=== PATIENT | male | born 1945 | race Caucasian/White ===

== ENCOUNTER → 2016-05-27 | Outpatient (CLI) | payer OTHER ==
[2016-05-27 09:49] LABS: Urine RBC None Seen /hpf (0 - 3)
[2016-05-27 10:34] LABS: Urine Bilirubin Negative (Negative); Urine Blood Negative /uL (Negative); Urine Color Yellow (Yellow); Urine Glucose Normal (Normal); Urine Ketone Negative (Negative); Urine Mucus FEW (None Seen); Urine Nitrite Negative (Negative); Urine Squamous Epithelial Cell FEW /hpf (<5); Urine Urobilinogen Normal (Negative); Urine pH 6.5 (5.0-8.0)
[2016-05-27 10:46] LABS: Albumin 3.7 g/dL (3.4-5.0); BUN/Creatinine Ratio 13.1; Bilirubin, Total 0.4 mg/dL (0.2-1.0); Calcium 9.1 mg/dL (8.5-10.1); Potassium 4.7 mmol/L (3.5-5.1)
[2016-05-27 11:02] LABS: Basophils # (auto) 0 uL; Basophils % (auto) 0.5 % (0.0-2.0); DEFINITIVE VIEW TRANSMISSION; Eosinophils # (auto) 0.1 uL; Eosinophils % (auto) 1.3 % (0.0-7.0); Hematocrit 44.1 % (41.0-53.0); Hemoglobin 15.1 g/dL (13.5-17.5); Lymphocytes # (auto) 2.2 uL; Lymphocytes % (auto) 32.5 % (10.0-50.0); Mean Corpuscular Hemoglobin 35.1 pg (28.0-32.0); Mean Corpuscular Hgb Conc. 34.3 g/dL (32.0-36.0); Mean Corpuscular Volume 102.1 fL (80.0-100.0); Mean Platelet Volume 7.6 fL (7.4-10.4); Monocytes # (auto) 0.4 uL; Monocytes % (auto) 5.6 % (0.0-12.0); Neutrophils % (auto) 60.1 % (37.0-80.0); Platelet Count (auto) 380 10^3/uL (140-450); Red Cell Distribution Width 12.5 % (11.6-16.0); White Blood Cell 6.6 10^3/uL (4.4-10.8)
== END | disposition home or self-care (01) ==
LOC: LAB 09:04
PROVIDERS: ATTEND Internal Medicine
DX: J02.9 Acute pharyngitis, unspecified (principal)
CPT/HCPCS: 36415; 80053; 80061; 81001; 84153; 84439; 84443; 85025; 85652

== ENCOUNTER → 2017-06-04 | Outpatient (CLI) | payer OTHER ==
[2017-06-04 08:51] LABS: Eosinophils # (auto) 0.1 uL; Lymphocytes # (auto) 1.9 uL; Monocytes # (auto) 0.3 uL; Nucleated Red Blood Cells % 0.1 %; Platelet Count (auto) 221 10^3/uL (140-450)
[2017-06-04 08:52] LABS: Basophils # (auto) 0 uL; Basophils % (auto) 0.7 % (0.0-2.0); Hematocrit 44.5 % (41.0-53.0); Hemoglobin 15.2 g/dL (13.5-17.5); Lymphocytes % (auto) 34.3 % (10.0-50.0); Mean Corpuscular Hemoglobin 35.4 pg (28.0-32.0); Mean Corpuscular Hgb Conc. 34.2 g/dL (32.0-36.0); Mean Corpuscular Volume 103.5 fL (80.0-100.0); Monocytes % (auto) 5.3 % (0.0-12.0); Neutrophils # (auto) 3.3 uL; Neutrophils % (auto) 58.7 % (37.0-80.0); Red Cell Distribution Width 12.3 % (11.8-14.3); White Blood Cell 5.6 10^3/uL (4.4-10.8)
[2017-06-04 09:42] LABS: Urine Bacteria NONE SEEN /hpf (None Seen); Urine Blood Negative /uL (Negative); Urine Mucus FEW (None Seen); Urine Specific Gravity 1.024 (1.001-1.035); Urine WBC 1 /hpf (0 - 3)
[2017-06-04 10:34] LABS: Albumin 3.8 g/dL (3.4-5.0); BUN/Creatinine Ratio 14.6; Bilirubin, Total 0.7 mg/dL (0.2-1.0); Calcium 9.1 mg/dL (8.5-10.1); Potassium 4.4 mmol/L (3.5-5.1); Total Protein 7.1 g/dL (6.4-8.2)
[2017-06-04 10:35] LABS: Free T4 (Free Thyroxine) 1.02 ng/dL (0.89-1.76)
[2017-06-04 10:36] LABS: Prostate Specific Antigen 3.07 ng/mL (0.0-4.0)
== END | disposition home or self-care (01) ==
LOC: LAB 08:29
PROVIDERS: ATTEND Internal Medicine
DX: J44.9 Chronic obstructive pulmonary disease, unspecified (principal); E78.5 Hyperlipidemia, unspecified
CPT/HCPCS: 36415; 80053; 80061; 81001; 84153; 84439; 84443; 85025; 85652

== ENCOUNTER → 2017-11-27 | Outpatient (CLI) | payer OTHER ==
[2017-11-27 10:18] LABS: INR 0.97 (0.9-1.15); Partial Thromboplastin Time 30.1 sec (23.78-33.04); Prothrombin Time 10.4 sec (9.27-12.13)
[2017-11-27 10:28] LABS: Alanine Aminotransferase 30 U/L (16-61); Aspartate Aminotransferase 25 U/L (15-37)
== END | disposition home or self-care (01) ==
LOC: LAB 09:40
PROVIDERS: ATTEND Internal Medicine
DX: E78.5 Hyperlipidemia, unspecified (principal); D75.89 Other specified diseases of blood and blood-forming organs; F10.10 Alcohol abuse, uncomplicated
CPT/HCPCS: 36415; 82607; 84450; 84460; 85610; 85730

== ENCOUNTER 2018-01-01 09:07 | Day surgery (SDC) | payer OTHER ==
[2017-12-29 11:17] LABS: Basophils # (auto) 0 uL; Basophils % (auto) 0.7 % (0.0-2.0); Eosinophils # (auto) 0 uL
[2017-12-29 11:20] LABS: Eosinophils % (auto) 0.7 % (0.0-7.0); Hematocrit 43.4 % (41.0-53.0); Hemoglobin 14.8 g/dL (13.5-17.5); Lymphocytes % (auto) 37.1 % (10.0-50.0); Mean Corpuscular Hemoglobin 35.7 pg (28.0-32.0); Mean Corpuscular Hgb Conc. 34.1 g/dL (32.0-36.0); Mean Corpuscular Volume 104.8 fL (80.0-100.0); Monocytes # (auto) 0.3 uL; Monocytes % (auto) 6.4 % (0.0-12.0); Neutrophils # (auto) 2.9 uL; Neutrophils % (auto) 55.1 % (37.0-80.0); Platelet Count (auto) 228 10^3/uL (140-450); Red Blood Cells 4.14 10^6/uL (4.5-5.90); Red Cell Distribution Width 12.7 % (11.8-14.3); White Blood Cell 5.3 10^3/uL (4.4-10.8)
[2017-12-29 11:21] LABS: Urine Bacteria NONE SEEN /hpf (None Seen); Urine Blood Negative /uL (Negative); Urine Specific Gravity 1.013 (1.001-1.035); Urine WBC <1 /hpf (0 - 3)
[2017-12-29 11:32] LABS: INR 0.99 (0.9-1.15); Prothrombin Time 10.6 sec (9.27-12.13)
[2017-12-29 11:52] LABS: Albumin 3.7 g/dL (3.4-5.0); Calcium 9.1 mg/dL (8.5-10.1); Potassium 4.8 mmol/L (3.5-5.1)
[2017-12-29 11:56] LABS: BUN/Creatinine Ratio 11.6; Bilirubin, Total 0.7 mg/dL (0.2-1.0); Total Protein 6.9 g/dL (6.4-8.2)
[~2018-01-01] VITALS: Ht 157.5 cm; Wt 54.4 kg
[~2018-01-01 09:07] MED LIST: ASPI81TA27 PO; ATOR20TA50 PO; METO25TA62 PO
[2018-01-01] MEDS ORDERED: EPINEPHrine HCL 1 MG/10 ML SYRG ONE (09:49)
[2018-01-01] MEDS ORDERED: LIDOCAINE 1% INJ PF 5ML AMP ONE (09:54)
[2018-01-01] MEDS ORDERED: PROPOFOL 10 MG/ML 20 ML IV ONE (09:57)
[2018-01-01] MEDS ORDERED: MIDAZOLAM HCL 1MG/1ML-2 ML VIAL ONE ×2 (09:57→10:12)
[2018-01-01] MEDS ORDERED: METOCLOPRAMIDE HCL 5MG/ml INJ 2ml VIAL ONE (09:57)
[2018-01-01] MEDS ORDERED: fentaNYL CITRATE 100 MCG/2 ML VL ONE (10:09)
[2018-01-01] MEDS ORDERED: HYDROmorphone HCL 2 MG/ML VL IV PRN (10:30)
[2018-01-01] MEDS ORDERED: ONDANSETRON HCL 4 MG/2 ML VIAL IV ONE (10:30)
[2018-01-01] MEDS ORDERED: NALOXONE HCL 0.4 MG/ML VIAL IV PRN (10:30)
[2018-01-01 11:13] VITALS: BP 116/70
== END 2018-01-01 11:28 | disposition home or self-care (01) ==
LOC: GI 09:07
PROVIDERS: ATTEND Internal Medicine Gastroenterology
DX: Z12.11 Encounter for screening for malignant neoplasm of colon (principal); D12.8 Benign neoplasm of rectum; D12.5 Benign neoplasm of sigmoid colon; K57.30 Diverticulosis of large intestine without perforation or abscess without bleeding; K64.8 Other hemorrhoids; F10.99 Alcohol use, unspecified with unspecified alcohol-induced disorder; F17.210 Nicotine dependence, cigarettes, uncomplicated; E78.00 Pure hypercholesterolemia, unspecified; J44.9 Chronic obstructive pulmonary disease, unspecified; I10 Essential (primary) hypertension; Z82.5 Family history of asthma and other chronic lower respiratory diseases; Z82.49 Family history of ischemic heart disease and other diseases of the circulatory system; Z80.9 Family history of malignant neoplasm, unspecified; Z79.82 Long term (current) use of aspirin; Z79.899 Other long term (current) drug therapy
CPT/HCPCS: 36415; 45381; 45385; 80053; 81001; 85025; 85610; 85730; 88305; J2250; J2704; J2765; J3010; J7030

== ENCOUNTER → 2018-06-01 | Outpatient (CLI) | payer OTHER ==
[2018-06-01 10:30] LABS: Lymphocytes # (auto) 1.5 uL; Mean Corpuscular Volume 104.4 fL (80.0-100.0); Monocytes # (auto) 0.3 uL; White Blood Cell 4.9 10^3/uL (4.4-10.8)
[2018-06-01 10:34] LABS: Basophils # (auto) 0.1 uL; Eosinophils # (auto) 0.1 uL; Eosinophils % (auto) 1.3 % (0.0-7.0); Hematocrit 42.4 % (41.0-53.0); Hemoglobin 14.4 g/dL (13.5-17.5); Lymphocytes % (auto) 31.3 % (10.0-50.0); Mean Corpuscular Hemoglobin 35.5 pg (28.0-32.0); Monocytes % (auto) 5.4 % (0.0-12.0); Nucleated Red Blood Cells % 0.2 %; Platelet Count (auto) 221 10^3/uL (140-450); Red Blood Cells 4.06 10^6/uL (4.5-5.90); Red Cell Distribution Width 12.7 % (11.8-14.3)
[2018-06-01 10:49] LABS: Albumin 3.9 g/dL (3.4-5.0); Calcium 8.9 mg/dL (8.5-10.1); Potassium 4.7 mmol/L (3.5-5.1)
[2018-06-01 10:53] LABS: BUN/Creatinine Ratio 14.4; Bilirubin, Total 0.8 mg/dL (0.2-1.0); Total Protein 6.7 g/dL (6.4-8.2); Urine Bacteria NONE SEEN /hpf (None Seen); Urine Blood Negative /uL (Negative); Urine Hyaline Cast FEW /lpf (0 - 2); Urine Mucus FEW (None Seen); Urine Specific Gravity 1.026 (1.001-1.035); Urine WBC <1 /hpf (0 - 3)
[2018-06-01 11:01] LABS: Free T4 (Free Thyroxine) 0.9 ng/dL (0.89-1.76); Prostate Specific Antigen 3.94 ng/mL (0.0-4.0)
== END | disposition home or self-care (01) ==
LOC: LAB 09:04
PROVIDERS: ATTEND Internal Medicine
DX: I10 Essential (primary) hypertension (principal)
CPT/HCPCS: 36415; 80053; 80061; 81001; 82043; 84153; 84439; 84443; 85025; 85652

== ENCOUNTER → 2018-08-13 | Outpatient (CLI) | payer OTHER | END | disposition home or self-care (01) | LOC: XYW 08:18 | PROVIDERS: ATTEND Internal Medicine | DX: Z01.810 Encounter for preprocedural cardiovascular examination (principal); I10 Essential (primary) hypertension | CPT/HCPCS: 93306 ==

== ENCOUNTER → 2018-10-06 | Outpatient (CLI) | payer OTHER ==
[~2018-10-06] VITALS: Ht 157.5 cm; Wt 54.4 kg
[~2018-10-06] MED LIST changes: +ADENOSINE 46 MG in GIVE UN-DILUTED 0 ML IV STA; +ALBUAER3 IN; +ASCO500T11 PO; +ASPI-404 PO; -ASPI81TA27 PO; +CALC600T4 PO; +CHOL20007 PO; +FLUT1SPR21; +LOSA-69 PO; +MULTTAB PO
== END | disposition home or self-care (01) ==
LOC: XYW 07:19
PROVIDERS: ATTEND Internal Medicine
DX: I10 Essential (primary) hypertension (principal)
CPT/HCPCS: 78452; 93017; A9500; J0153

== ENCOUNTER 2018-11-17 08:47 | Inpatient (IN) | payer OTHER ==
[2018-11-15 10:11] LABS: Urine WBC None Seen /hpf (0 - 3)
[2018-11-15 10:51] LABS: Urine Bacteria NONE SEEN /hpf (None Seen); Urine Blood Negative /uL (Negative); Urine Specific Gravity 1.014 (1.001-1.035)
[2018-11-15 10:52] LABS: Basophils # (auto) 0.1 uL; Basophils % (auto) 1.4 % (0.0-2.0); Eosinophils # (auto) 0 uL; Lymphocytes # (auto) 1.4 uL; Lymphocytes % (auto) 32.3 % (10.0-50.0); Monocytes # (auto) 0.3 uL; White Blood Cell 4.2 10^3/uL (4.4-10.8)
[2018-11-15 10:56] LABS: Eosinophils % (auto) 0.8 % (0.0-7.0); Hematocrit 41.6 % (41.0-53.0); Hemoglobin 14.3 g/dL (13.5-17.5); Mean Corpuscular Hemoglobin 36.4 pg (28.0-32.0); Mean Corpuscular Hgb Conc. 34.4 g/dL (32.0-36.0); Monocytes % (auto) 6.1 % (0.0-12.0); Neutrophils # (auto) 2.5 uL; Neutrophils % (auto) 59.4 % (37.0-80.0); Nucleated Red Blood Cells % 0.1 %; Platelet Count (auto) 209 10^3/uL (140-450); Red Blood Cells 3.93 10^6/uL (4.5-5.90); Red Cell Distribution Width 12.7 % (11.8-14.3)
[2018-11-15 11:01] LABS: INR 0.93 (0.9-1.15); Partial Thromboplastin Time 28.9 sec (23.64-32.05)
[2018-11-15 11:13] LABS: Albumin 3.9 g/dL (3.4-5.0); Calcium 9.3 mg/dL (8.5-10.1); Potassium 4.4 mmol/L (3.5-5.1)
[2018-11-15 11:16] LABS: BUN/Creatinine Ratio 11.1; Bilirubin, Total 0.5 mg/dL (0.2-1.0)
[~2018-11-17] VITALS: Ht 157.5 cm; Wt 50.9 kg
[~2018-11-17 08:47] MED LIST changes: -ADENOSINE 46 MG in GIVE UN-DILUTED 0 ML IV STA; -METO25TA62 PO
[2018-11-17] MEDS ORDERED: cefTRIAXone SOD 1,000 MG VL ONE (10:54)
[2018-11-17] MEDS ORDERED: fentaNYL CITRATE 100 MCG/2 ML VL ONE (11:05)
[2018-11-17] MEDS ORDERED: HYDROmorphone HCL 2 MG/ML VL ONE (11:05)
[2018-11-17] MEDS ORDERED: ONDANSETRON HCL 4 MG/2 ML VIAL ONE (11:06)
[2018-11-17] MEDS ORDERED: fentaNYL CITRATE 10 ML ONE (11:06)
[2018-11-17] MEDS ORDERED: ROCURONIUM 10MG/ML 10ML VIAL IV ONE (11:06)
[2018-11-17] MEDS ORDERED: SODIUM CHLORIDE LOCK 10 ML ONE (11:06)
[2018-11-17] MEDS ORDERED: PROPOFOL 10 MG/ML 20 ML IV ONE (11:06)
[2018-11-17] MEDS ORDERED: MIDAZOLAM HCL 1MG/1ML-2 ML VIAL ONE (11:06)
[2018-11-17] MEDS ORDERED: GLYCOPYRROLATE 0.2 MG/ML 1ML VIAL ONE (12:52)
[2018-11-17] MEDS ORDERED: NEOSTIGMINE 1 MG/ML INJ (10mg/10ML VIAL) ONE (12:52)
[2018-11-17] MEDS ORDERED: fentaNYL CITRATE 100 MCG/2 ML VL IV PRN (13:00)
[2018-11-17] MEDS ORDERED: METOCLOPRAMIDE HCL 5MG/ml INJ 2ml VIAL IV PRN (13:00)
[2018-11-17] MEDS ORDERED: HYDROmorphone HCL 2 MG/ML VL IV PRN (13:00)
[2018-11-17] MEDS ORDERED: ONDANSETRON HCL 4 MG/2 ML VIAL IV PRN (13:45)
--- NOTE | 2018-11-17 15:30 | NUR ---
[facility] admit from [facility] admitted to [facility] after SBAR received. Patient oriented to Mary Barclay, primary RN, unit, room, bed, and unit policies regarding patient care and visiting hours. Patient weighed by bedscale and encouraged to call if they need something. Respirations are even and unlabored on 2L O2 via NC. Bed locked in lowest position, side rails up x2, call light within reach, bed alarm on for safety. Wang draining freely to gravity. NG in place connected to low continuous suction. All questions and concerns addressed, patient verbalized understanding.
--- NOTE | 2018-11-17 15:35 | NUR ---
Spoke with Ashwini picc line RN Will attempt picc line insertion for TPN tomorrow 11/18. Will obtain consents.
[2018-11-17] MEDS ORDERED: ALBUTEROL SULF 2.5 MG/0.5ML(0.5%) NEB SOLN NEB PRN (16:15)
[2018-11-17] MEDS ORDERED: LORazepam 2MG/ML-1ML VIAL IV PRN (16:15)
[2018-11-17] MEDS ORDERED: THIAMINE 100mg/ml INJ (200mg/2ml VIAL) IV ONE (16:15)
[2018-11-17] MEDS ORDERED: NICOTINE 21MG/24 HR TOPICAL PATCH TD ONE (16:15)
[2018-11-17] MEDS ORDERED: FOLIC ACID 1 MG in D5W 5% 50 ML IV ONE (16:15)
[2018-11-17] MEDS: D5W/ SOD CHL 0.9%/KCL 20MEQ 1,000 ML IV SCH ×2 (16:22→23:00)
--- NOTE | 2018-11-17 16:24 | NUR ---
Per Dr Mckinley Patient does not need TPN or PICC line insertion at this time.
[2018-11-17 16:30] VITALS: BP 137/75
--- NOTE | 2018-11-17 16:40 | NUR ---
DRESSING OBSERVATION MINIMAL DRAINAGE VISUALIZED ON SURGICAL DRESSING, DRAINAGE WAS CIRCLED. APPLIED ABDOMINAL BINDER PER MD ORDERS.
[2018-11-17 17:00] VITALS: BP 135/75
--- NOTE | 2018-11-17 17:08 | NUR ---
IGOVANI DRAIN EMPTIED 60ML OF SEROSANGUINEOUS FLUID.
--- NOTE | 2018-11-17 18:10 | NUR ---
PT ASSESSED FOR PRN MED NEB TX. SPO2 99% ON 2L NC, HR 80. PT DENIES ANY RESPIRATORY DISTRESS. NO TX INDICATED. PT IS AWARE TO HAVE RT PAGED IF TX NEEDED.
[2018-11-17 18:11] VITALS: BP 137/75
--- NOTE | 2018-11-17 18:53 | NUR ---
PATIENT ROUNDS PATIENT RESTING IN BED WATCHING TELEVISION. NO S/S OF DISTRESS NOTED. WILL ENDORSE CARE TO COMPUTATIONAL LINGUIST RN.
--- NOTE | 2018-11-17 19:30 | NUR ---
Opening Shift Note Assumed care of patient, awake and alert. No S/S of distress/SOB or pain. Instructed on POC and to call for assist PRN, will continue to monitor for changes Q1hr and PRN.
--- NOTE | 2018-11-17 20:30 | NUR ---
GIOVANI DRAIN GIOVANI drain assessed. Patent with bulb suction. Emptied 20 ml serosanguinous drainage. Dressing clean, dry and intact. Patient tolerated well.
[2018-11-17 22:00] VITALS: BP 134/74
[2018-11-18 05:43] VITALS: BP 131/70
[2018-11-18 06:08] LABS: Basophils # (auto) 0 uL; Eosinophils # (auto) 0 uL; Hemoglobin 12.8 g/dL (13.5-17.5); Lymphocytes # (auto) 0.9 uL; Lymphocytes % (auto) 14.8 % (10.0-50.0); Monocytes # (auto) 0.3 uL
[2018-11-18 06:12] LABS: Basophils % (auto) 0.7 % (0.0-2.0); Eosinophils % (auto) 0.2 % (0.0-7.0); Hematocrit 36.1 % (41.0-53.0); Mean Corpuscular Hemoglobin 36.7 pg (28.0-32.0); Mean Corpuscular Hgb Conc. 35.5 g/dL (32.0-36.0); Mean Corpuscular Volume 103.4 fL (80.0-100.0); Monocytes % (auto) 5.3 % (0.0-12.0); Platelet Count (auto) 165 10^3/uL (140-450); Red Blood Cells 3.49 10^6/uL (4.5-5.90); Red Cell Distribution Width 12.4 % (11.8-14.3); White Blood Cell 6.4 10^3/uL (4.4-10.8)
[2018-11-18 06:30] LABS: BUN/Creatinine Ratio 12.9; Calcium 7.8 mg/dL (8.5-10.1); Potassium 3.9 mmol/L (3.5-5.1)
[2018-11-18] MEDS: D5W/ SOD CHL 0.9%/KCL 20MEQ 1,000 ML IV SCH ×2 (06:38→14:57)
--- NOTE | 2018-11-18 06:39 | NUR ---
GIOVANI DRAIN OUTPUT Total output 60 ml serosanguinous fluid from GIOVANI drain. Drain is patent and to bulb suction. Dressing clean, dry and intact.
[2018-11-18] MEDS: HYDROmorphone HCL 2 MG/ML VL IV PRN ×3 (06:54→21:28)
--- NOTE | 2018-11-18 07:30 | NUR ---
SHIFT CLOSING NOTE Endorsed care of patient to day shift, JEFF Rogers.
[2018-11-18 09:00] VITALS: BP 118/72
--- NOTE | 2018-11-18 09:28 | NUR ---
D/C Planning Per SS Consult for etoh abuse. Attempted to provided resource information for substance abused however Pt refused. Pt stated he drinks a bottle of wine and 2 shots of whiskey a day. Pt stated began to drink at a young age. Pt verbalize understanding.
[2018-11-18] MEDS: NICOTINE 21MG/24 HR TOPICAL PATCH TD SCH (10:58)
[2018-11-18] MEDS: FAMOTIDINE (10MG/ML) 2ML VL IV SCH (10:58)
[2018-11-18] MEDS: FOLIC ACID 1 MG in D5W 5% 50 ML IV SCH (10:59)
[2018-11-18] MEDS: THIAMINE 100mg/ml INJ (200mg/2ml VIAL) IV SCH (10:59)
[2018-11-18 13:00] VITALS: BP 134/75
--- NOTE | 2018-11-18 13:30 | NUR ---
AMBULATED IN HALLWAY STEADY GAIT. NO SIGNS OF DISTRESS. WOODARD CATHETER REMOVED PATIENT VOIDED 200 MLS IN URINAL.
[2018-11-18] MEDS: cefTRIAXone 1GM/50ML D5W 50 ML IV SCH (14:57)
[2018-11-18 17:00] VITALS: BP 140/79
--- NOTE | 2018-11-18 17:59 | NUR ---
PATIENT REPORTS THAT HE WALKS FINE AND DOES NOT NEED P.T.
--- NOTE | 2018-11-18 19:30 | NUR ---
Opening Shift Note Report received from day shift RN. Assumed care of patient. Patient sitting in bed awake and alert x4. No S/S of distress/SOB noted. Patient complains of pain to the abdominal incision. Will medicate as ordered. NG tube in place and connected to LCS. Abdominal binder and GIOVANI drain in place. Midline abdominal incision dressing clean, dry, and intact. Instructed on POC and to call for assist PRN. Call light left within reach. Will continue to monitor for changes Q1hr and PRN.
[2018-11-18 21:00] VITALS: BP 152/78
--- NOTE | 2018-11-18 21:30 | NUR ---
Low grade fever GASKET INSPECTOR reported patient having a temperature of 100.4, reassessed temp and was noted to be 99.7. Initiated cooling measures, placed ice packs to patient axillary areas. Will continue to monitor.
--- NOTE | 2018-11-18 22:28 | NUR ---
RT NOTE PT WAS SEEN BY RT FOR PRN ASSESSMENT. PT STATE NO TROUBLE BREATHING. NO SOB OR DISTRESS NOTED. HR 78, TT 16, BS CLEAR/DIM, POX 93% ON R/A. PT AWARE TO CALL IF SOB OR WHEEZES. NO PRN TX INDICATED AT THIS TIME. CONT ORDERED. Addendum: 11/18/18 at 2230 by Kenisha Dennison RT Amended: Links added.
--- NOTE | 2018-11-18 22:30 | NUR ---
Temperature reassessment Reassessed patient's temp after cooling measures, current temp 98.5.
[2018-11-19] MEDS: D5W/ SOD CHL 0.9%/KCL 20MEQ 1,000 ML IV SCH ×3 (03:26→15:45)
[2018-11-19 04:30] VITALS: BP 157/86
--- NOTE | 2018-11-19 06:03 | NUR ---
GIOVANI OUTPUT OUTPUT DURING SHIFT, 30 MLS OF SANGUINOUS FLUID.
--- NOTE | 2018-11-19 08:00 | NUR ---
AMBULATING IN HALLWAY NO SIGNS OF DISTRESS.
--- NOTE | 2018-11-19 08:22 | NUR ---
AMBULATED IN HALLWAY STEADY GAIT NO SIGNS OF DISTRESS. STATES HE ONLY FEELS CRAMPING IN [place]LLY. ASSISTED TO TOILET.
[2018-11-19 09:00] VITALS: BP 151/81
--- NOTE | 2018-11-19 10:00 | NUR ---
Respiratory note: ASSESSED PT FOR PRN TX PT WAS AWAKE AND ALERT NO RESP DISTRESS NOTED. HR 90, RR20, SPO2 92% ON ROOM AIR, BS ARE CLEAR, NO INDICATION FOR TX AT THIS TIME. PT KNOWS TO HAVE RT PAGED IF TX IS NEEDED.
[2018-11-19] MEDS: FOLIC ACID 1 MG in D5W 5% 50 ML IV SCH (10:34)
[2018-11-19] MEDS: cefTRIAXone 1GM/50ML D5W 50 ML IV SCH (10:34)
[2018-11-19] MEDS: THIAMINE 100mg/ml INJ (200mg/2ml VIAL) IV SCH (10:35)
[2018-11-19] MEDS: FAMOTIDINE (10MG/ML) 2ML VL IV SCH (10:35)
[2018-11-19] MEDS: NICOTINE 21MG/24 HR TOPICAL PATCH TD SCH (10:35)
--- NOTE | 2018-11-19 11:00 | NUR ---
AMBULATING IN [address]
--- NOTE | 2018-11-19 12:00 | NUR ---
PATIENT HAD SMALL BOWEL MOVEMENT.
[2018-11-19 13:00] VITALS: BP 152/85
[2018-11-19 17:01] VITALS: BP 159/91
--- NOTE | 2018-11-19 18:05 | NUR ---
Assessment Pt is a 72 yr old alert and oriented male. Pt lives at home with his , Tony Hoffmann, who is his emergency contact at [phone]. Pts helps to cook and clean for him. Pt stated that he would feel safe to go home upon d/c. Pt stated that he had part of his colon removed in order to remove some polyps, and he is not recovering very well. Pt uses a w/c and a scooter at home and states that he is working on walking better and becoming more independent. Pt states that he has no need for HH currently. Pts Primary is Dr. Adler. Pt states that he has an advanced directive on file with the hospital. Pt states that his will be able to transport him home upon d/c. Addendum: 11/19/18 at 1806 by VICTORIA MCARTHUR SS Amended: Links added.
--- NOTE | 2018-11-19 19:20 | NUR ---
Opening Shift Note Report received from day shift RN. Assumed care of patient. Patient sitting in bed awake and alert x4. No S/S of distress/SOB noted and denies pain at this time. NG tube in place and connected to LCS. Abdominal binder and GIOVANI drain in place. Midline abdominal incision dressing clean, dry, and intact. Instructed on POC and to call for assist PRN. Call light left within reach. Will continue to monitor for changes Q1hr and PRN.
--- NOTE | 2018-11-19 19:20 | NUR ---
Opening Shift Note Report received from day shift RN. Assumed care of patient. Patient sitting in bed awake and alert x4. No S/S of distress/SOB noted and denies any pain at this time. NG tube in place and connected to LCS. Abdominal binder and GIOVANI drain in place. Midline abdominal incision dressing clean, dry, and intact. Instructed on POC and to call for assist PRN. Call light left within reach. Will continue to monitor for changes Q1hr and PRN.
--- NOTE | 2018-11-19 19:55 | NUR ---
Patient ambulating the hallway. Also, reported making a small bowel movement.
[2018-11-19 22:00] VITALS: BP 148/81
[2018-11-20] MEDS: D5W/ SOD CHL 0.9%/KCL 20MEQ 1,000 ML IV SCH ×4 (02:50→23:14)
[2018-11-20 05:50] VITALS: BP 142/88
--- NOTE | 2018-11-20 06:30 | NUR ---
GIOVANI OUTPUT 40 ML SANGUINOUS FLUID
[2018-11-20 08:00] VITALS: BP 151/86
[2018-11-20] MEDS: cefTRIAXone 1GM/50ML D5W 50 ML IV SCH (08:41)
--- NOTE | 2018-11-20 09:00 | NUR ---
Opening Shift Note Assumed care of patient, awake and alert. NG tube maintained to LIS, with small amt dark green drainage. NPO status maintained, except for small amts of ice chips. Pt denies pain or discomfort. Pt instructed on POC and to call for assist PRN, will continue to monitor for changes Q1hr and PRN.
[2018-11-20] MEDS: THIAMINE 100mg/ml INJ (200mg/2ml VIAL) IV SCH (11:16)
[2018-11-20] MEDS: FOLIC ACID 1 MG in D5W 5% 50 ML IV SCH (11:17)
[2018-11-20] MEDS: FAMOTIDINE (10MG/ML) 2ML VL IV SCH (11:20)
[2018-11-20] MEDS: NICOTINE 21MG/24 HR TOPICAL PATCH TD SCH (11:33)
[2018-11-20 12:00] VITALS: BP 147/86
--- NOTE | 2018-11-20 12:00 | NUR ---
Pt noted to be, frequently, ambulating in hallway. Pt states that he has been passing "lots of gas", and has had "two bowel movements this morning." Dr Gu to be informed and to request NG tube to be DC'd per pt request.
--- NOTE | 2018-11-20 14:00 | NUR ---
NG tube dc'd. NPO status maintained except for small amts of ice chips. Pt informed, verbalized understanding and intent to comply with small amts of ice chips.
[2018-11-20 17:00] VITALS: BP 148/81
--- NOTE | 2018-11-20 18:00 | NUR ---
Pt denies nausea, no emesis. NPO status maintained, with small amts of ice chips. Pt denies need for pain medication throughout this shift.
--- NOTE | 2018-11-20 19:30 | NUR ---
Opening Shift Note Assumed care of patient, awake and alert. Currently on RA with no S/S of distress/SOB. Denies pain at this time. NPO status maintained. Patient is ambulatory without the use of assistive devices. Abdominal dressing is CDI. DP drain draining serosanguineous fluid. 30ml emptied at this time. Instructed on POC and to call for assist PRN, will continue to monitor for changes Q1hr and PRN.
[2018-11-20 22:09] VITALS: BP 150/76
[2018-11-21 05:13] VITALS: BP 134/71
[2018-11-21] MEDS: cefTRIAXone 1GM/50ML D5W 50 ML IV SCH (08:15)
[2018-11-21 09:00] VITALS: BP 134/78
--- NOTE | 2018-11-21 09:00 | NUR ---
Abd surgical site drsg changed. Radha intact. No redness, swelling or drainage noted. GIOVANI intact, draining small amt serous fluid. Pt remains NPO with small amts of ice chips. Pt noted to be ambulating, frequently, in hallway. Pt denies abd pain, nausea or vomiting. No other c/o pain or discomfort.
--- NOTE | 2018-11-21 09:00 | NUR ---
PT ASSESSED FOR PRN MED MAHAMED TX, PT IN NO DISTRESS ON RA WITH SPO2 94%. WILL CONTINUE TO MONITOR PT.
[2018-11-21] MEDS: FAMOTIDINE (10MG/ML) 2ML VL IV SCH (09:58)
[2018-11-21] MEDS: FOLIC ACID 1 MG in D5W 5% 50 ML IV SCH (09:59)
[2018-11-21] MEDS: D5W/ SOD CHL 0.9%/KCL 20MEQ 1,000 ML IV SCH ×2 (10:04→17:45)
[2018-11-21] MEDS: THIAMINE 100mg/ml INJ (200mg/2ml VIAL) IV SCH (10:04)
[2018-11-21] MEDS: NICOTINE 21MG/24 HR TOPICAL PATCH TD SCH (10:05)
[2018-11-21 13:15] VITALS: BP 148/85
--- NOTE | 2018-11-21 15:21 | NUR ---
NUTRITION ASSESSMENT NOTES Please refer to link notes of nutrition screen form filed under the intervention section of the plan of care for further details. Est. Needs: 1550 kcal to 1850 kcal (30-35 kcal/kgBW), 51 gms to 61 gms pro (1.0-1.2 gms/kgBW). Will continue to monitor pertinent labs and reassess nutrient need prn Thank you. Addendum: 11/21/18 at [address] Amended: Links added.
[2018-11-21 15:45] VITALS: BP 148/85
[2018-11-21 17:26] VITALS: BP 151/80
--- NOTE | 2018-11-21 19:15 | NUR ---
OPENING SHIFT NOTE Assumed care of patient who is alert and oriented. Currently on room air with no s/s of distress or SOB noted. Denies pain at this time. Patient is ambulatory without the use of assistive devices. POC discussed with patient who verbalizes understanding. Bed is in low locked position with side rails up x2. Call light is within reach and patient encouraged to call for assistance when needed. Will continue to monitor for changes PRN.
--- NOTE | 2018-11-21 20:00 | NUR ---
Hospitalist paged to inquire about advancing diet. Awaiting call back.
--- NOTE | 2018-11-21 20:28 | NUR ---
Spoke with Dr. Maharaj. Received new order to advance diet to clear liquids. Will follow through with order.
[2018-11-21 21:15] VITALS: BP 167/76
--- NOTE | 2018-11-21 21:46 | NUR ---
BP is 167/76. patient has orders to treat SBP over 160, however the order indicates that telemetry monitoring is required. Hospitalist paged to clarify.
[2018-11-21] MEDS: ENALAPRILAT 1.25 MG/ML-1ML VIAL IV PRN (22:27)
--- NOTE | 2018-11-21 22:28 | NUR ---
Spoke with Dr. Maharaj to report BP of 167/76. Vasotec order in eMAR states medication requires cardiac monitoring and patient is not currently on telemetry. Dr. Maharaj states okay to administer Vasotec 1.25mg without monitor technician. Will follow through with order and reassess BP after administration.
--- NOTE | 2018-11-21 23:11 | NUR ---
BP Reassessed BP reassessed and is 140/78, heart rate of 61.
[2018-11-22] MEDS: D5W/ SOD CHL 0.9%/KCL 20MEQ 1,000 ML IV SCH ×3 (02:40→13:41)
--- NOTE | 2018-11-22 02:40 | NUR ---
ROUNDS Patient awake and alert. No distress noted. IV fluids changed and infusing as ordered. Encouraged patient to call for assistance when needed; verbalized understanding. Will continue to monitor for changes PRN.
[2018-11-22 05:10] VITALS: BP 138/71
--- NOTE | 2018-11-22 05:15 | NUR ---
GIOVANI DRAIN 40ml serosanguineous drainage emptied from GIOVANI drain.
--- NOTE | 2018-11-22 09:13 | NUR ---
Respiratory note: MED NEB TX NOT INDICATED AT THIS TIME. SPO2 99 RA HR 63 RR 18 BS CLEAR. NO RESPIRATORY DISTRESS NOTED AT THIS TIME.
[2018-11-22] MEDS: cefTRIAXone 1GM/50ML D5W 50 ML IV SCH (09:21)
[2018-11-22] MEDS: THIAMINE 100mg/ml INJ (200mg/2ml VIAL) IV SCH (09:22)
[2018-11-22] MEDS: NICOTINE 21MG/24 HR TOPICAL PATCH TD SCH (09:22)
[2018-11-22] MEDS: FAMOTIDINE (10MG/ML) 2ML VL IV SCH (09:22)
[2018-11-22 09:26] VITALS: BP 126/73
[2018-11-22] MEDS: FOLIC ACID 1 MG in D5W 5% 50 ML IV SCH (10:11)
--- NOTE | 2018-11-22 11:20 | NUR ---
GIOVANI-DRAIN; ISLAND DRESSING REMOVED FORM ABDOMINAL INCISION. JUNAID IN PLACE, ASYMPTOMATIC SURGICAL INCISION, DRY DRESSING TO PREVIOUS GIOVANI DRAIN SITE, CDI AT MOMENT. CALL LIGHT WITHIN REACH. WILL CONTINUE TO MONITOR.
[2018-11-22] MEDS ORDERED: HYDROmorphone HCL 2 MG/ML VL IV PRN (13:00)
[2018-11-22] MEDS ORDERED: HYDROcodone-ACET 5/325MG TAB PO PRN (13:00)
--- NOTE | 2018-11-22 13:00 | NUR ---
DR. NOVAK IN TO SEE PT. PLAN OF CARE DISCUSSED. PT IN AGREEMENT. MADE AWARE OF PT'S C/O RASH TO BACK.
[2018-11-22] MEDS ORDERED: FAMOTIDINE 20 MG TAB PO ONE (13:30)
[2018-11-22] MEDS ORDERED: MULTIPLE VITAMIN TAB PO ONE (13:30)
[2018-11-22] MEDS ORDERED: LOSARTAN POTASSIUM 25 MG TAB PO ONE (13:30)
[2018-11-22 13:36] VITALS: BP 150/77
--- NOTE | 2018-11-22 13:43 | NUR ---
IV FLUIDS ADJUSTED PER ORDER.
[2018-11-22 17:31] VITALS: BP 160/91
--- NOTE | 2018-11-22 19:30 | NUR ---
OPENING SHIFT NOTE Assumed care of patient who is alert and oriented. Currently on room air with no s/s of distress or SOB noted. Denies pain at this time. Patient is sitting up on side of bed,eating dinner. POC discussed with patient who verbalizes understanding. Bed is in low locked position with side rails up x2. Call light is within reach and patient encouraged to call for assistance when needed. Will continue to monitor for changes PRN.
--- NOTE | 2018-11-22 19:45 | NUR ---
PATIENT AMBULATING HALLWAYS INDEPENDENTLY. ADVISED TO SEEK HELP IF NEEDED. PATIENT VERBALIZES UNDERSTANDING.
[2018-11-22 20:00] VITALS: BP 161/83
[2018-11-22] MEDS: ENALAPRILAT 1.25 MG/ML-1ML VIAL IV PRN (21:25)
--- NOTE | 2018-11-22 21:40 | NUR ---
Respiratory note:PT ASSESSED FOR PRN MED NEB TX. HR 65, RR 18, SPO2 95% ON RA. NO SIGNS OF ANY RESPIRATORY DISTRESS NOTED. ADVISED PT TO CALL IF TX IS NEEDED. RT NAME AND PAGER NUMBER WRITTEN ON PT'S BOARD.
[2018-11-22 22:00] VITALS: BP 161/83
[2018-11-23] MEDS: D5W/ SOD CHL 0.9%/KCL 20MEQ 1,000 ML IV SCH (04:39)
--- NOTE | 2018-11-23 04:40 | NUR ---
C/O BACK ITCHINESS/BREAKOUT AWARE PER DAY SHIFT JEFF FOLEY, NO NEW ORDERS RECEIVED. PATIENT PROVIDED WITH ANTIFUNGAL CREAM TO SOOTHE SKIN. WILL CONTINUE TO MONITOR.
[2018-11-23 05:29] VITALS: BP 144/78
[2018-11-23 06:14] LABS: Basophils # (auto) 0.1 uL; Mean Corpuscular Hemoglobin 36.9 pg (28.0-32.0); Monocytes # (auto) 0.5 uL; White Blood Cell 5.7 10^3/uL (4.4-10.8)
[2018-11-23 06:18] LABS: Basophils % (auto) 1.6 % (0.0-2.0); Eosinophils # (auto) 0.2 uL; Eosinophils % (auto) 3.9 % (0.0-7.0); Hematocrit 30.2 % (41.0-53.0); Lymphocytes # (auto) 1.2 uL; Lymphocytes % (auto) 21.8 % (10.0-50.0); Mean Corpuscular Hgb Conc. 36.6 g/dL (32.0-36.0); Mean Corpuscular Volume 100.9 fL (80.0-100.0); Monocytes % (auto) 8.7 % (0.0-12.0); Neutrophils # (auto) 3.6 uL; Platelet Count (auto) 189 10^3/uL (140-450); Red Cell Distribution Width 12.3 % (11.8-14.3)
[2018-11-23 06:38] LABS: Calcium 8.7 mg/dL (8.5-10.1); Potassium 3.7 mmol/L (3.5-5.1)
[2018-11-23 06:45] LABS: BUN/Creatinine Ratio 8.5
--- NOTE | 2018-11-23 07:00 | NUR ---
Respiratory note: MED NEB TX NOT INDICATED AT THIS TIME. SPO2 93 RR 14 HR 67 NO RESPIRATORY DISTRESS NOTED AT THIS TIME.
--- NOTE | 2018-11-23 08:01 | NUR ---
OPENING SHIFT NOTE Assumed care of patient who is alert and oriented. Currently on room air with no s/s of SOB or distress. Denies any pain or discomfort at this time. POC discussed with patient who verbalizes understanding. Patient encouraged to continue to ambulate as tolerated to maintain skin integrity and strength. Bed is in low locked position with side rails up x2. Will continue to monitor for changes PRN. Call light within reach.
[2018-11-23 08:10] VITALS: BP 139/81
[2018-11-23] MEDS: NICOTINE 21MG/24 HR TOPICAL PATCH TD SCH (09:34)
[2018-11-23] MEDS ORDERED: FAMOTIDINE 20 MG TAB PO SCH (10:00)
[2018-11-23] MEDS ORDERED: LOSARTAN POTASSIUM 25 MG TAB PO SCH (10:00)
[2018-11-23] MEDS ORDERED: MULTIPLE VITAMIN TAB PO SCH (10:00)
[2018-11-23 12:57] VITALS: BP 144/76
[2018-11-23 13:21] VITALS: BP 145/77
== END 2018-11-23 14:07 | disposition home or self-care (01) | DRG 331 ==
LOC: SUR 08:47 → WEST WING 15:23
PROVIDERS: ADMIT Surgery; ATTEND Internal Medicine
PROC: 0DTN0ZZ Resection of Sigmoid Colon, Open Approach (ICD-10-PCS; 2018-11-17)
PROC: 0DTP0ZZ Resection of Rectum, Open Approach (ICD-10-PCS; principal; 2018-11-17 11:54)
DX: D12.5 Benign neoplasm of sigmoid colon (principal); E78.5 Hyperlipidemia, unspecified; F10.10 Alcohol abuse, uncomplicated; I10 Essential (primary) hypertension; J44.9 Chronic obstructive pulmonary disease, unspecified; F17.210 Nicotine dependence, cigarettes, uncomplicated
CPT/HCPCS: 36415; 80048; 80053; 81001; 85025; 85610; 85730; 86850; 86900; 86901; 93971; 94640; G0378; J0696; J2250; J2405; J2704; J3490; J7060

== ENCOUNTER → 2019-02-22 | Outpatient (CLI) | payer OTHER | END | disposition home or self-care (01) | LOC: LAB 15:00 | PROVIDERS: ATTEND Physician Assistant | DX: D22.5 Melanocytic nevi of trunk (principal) ==

== ENCOUNTER → 2019-04-11 | Outpatient (CLI) | payer OTHER ==
[2019-04-11 12:05] LABS: Eosinophils # (auto) 0 uL; Lymphocytes # (auto) 1.4 uL; Nucleated Red Blood Cells % 0.1 %; Red Cell Distribution Width 12.8 % (11.8-14.3)
[2019-04-11 12:07] LABS: Basophils # (auto) 0 uL; Basophils % (auto) 0.7 % (0.0-2.0); Eosinophils % (auto) 0.4 % (0.0-7.0); Hematocrit 41.5 % (41.0-53.0); Hemoglobin 14.4 g/dL (13.5-17.5); Mean Corpuscular Hemoglobin 36.4 pg (28.0-32.0); Mean Corpuscular Hgb Conc. 34.6 g/dL (32.0-36.0); Mean Corpuscular Volume 105.3 fL (80.0-100.0); Monocytes # (auto) 0.4 uL; Monocytes % (auto) 6.1 % (0.0-12.0); Neutrophils % (auto) 68.8 % (37.0-80.0); Platelet Count (auto) 198 10^3/uL (140-450); Red Blood Cells 3.94 10^6/uL (4.5-5.90); White Blood Cell 5.8 10^3/uL (4.4-10.8)
== END | disposition home or self-care (01) ==
LOC: LAB 11:47
PROVIDERS: ATTEND Internal Medicine
DX: D64.9 Anemia, unspecified (principal); I10 Essential (primary) hypertension
CPT/HCPCS: 36415; 84132; 85025; 85652

== ENCOUNTER → 2019-08-11 | Outpatient (CLI) | payer OTHER ==
[2019-08-11 09:45] LABS: Urine Bacteria NONE SEEN /hpf (None Seen); Urine Blood Negative /uL (Negative); Urine Mucus FEW (None Seen); Urine Specific Gravity 1.026 (1.001-1.035); Urine WBC 3 /hpf (0 - 3)
[2019-08-11 09:48] LABS: Basophils # (auto) 0 10 ^3/uL (0-0.2); Eosinophils # (auto) 0 10 ^3/uL (0-0.8); Lymphocytes # (auto) 1.2 10 ^3/uL (0.4-5.4); Monocytes # (auto) 0.2 10 ^3/uL (0-1.3); White Blood Cell 3.5 10^3/uL (4.4-10.8)
[2019-08-11 09:51] LABS: Eosinophils % (auto) 0.6 % (0.0-7.0); Hemoglobin 14.3 g/dL (13.5-17.5); Lymphocytes % (auto) 34.4 % (10.0-50.0); Mean Corpuscular Hemoglobin 36.5 pg (28.0-32.0); Mean Corpuscular Hgb Conc. 34.1 g/dL (32.0-36.0); Mean Corpuscular Volume 107.1 fL (80.0-100.0); Platelet Count (auto) 233 10^3/uL (140-450); Red Blood Cells 3.92 10^6/uL (4.5-5.90); Red Cell Distribution Width 12.7 % (11.8-14.3)
[2019-08-11 10:14] LABS: Potassium 4.5 mmol/L (3.5-5.1)
[2019-08-11 10:17] LABS: Albumin 3.6 g/dL (3.4-5.0); BUN/Creatinine Ratio 13.6; Calcium 9.1 mg/dL (8.5-10.1)
[2019-08-11 10:20] LABS: Free T4 (Free Thyroxine) 0.87 ng/dL (0.89-1.76)
[2019-08-11 10:24] LABS: Bilirubin, Total 0.5 mg/dL (0.2-1.0); Total Protein 6.9 g/dL (6.4-8.2)
[2019-08-11 10:35] LABS: Prostate Specific Antigen 4.28 ng/mL (0.0-4.0)
== END | disposition home or self-care (01) ==
LOC: LAB 09:09
PROVIDERS: ATTEND Internal Medicine
DX: Z12.5 Encounter for screening for malignant neoplasm of prostate (principal); J44.9 Chronic obstructive pulmonary disease, unspecified; I10 Essential (primary) hypertension
CPT/HCPCS: 36415; 80053; 80061; 81001; 84153; 84154; 84439; 84443; 85025; 85652

== ENCOUNTER → 2019-09-16 | Day surgery (SDC) | payer OTHER ==
[2019-09-14 11:02] LABS: Basophils # (auto) 0 10 ^3/uL (0-0.2); Basophils % (auto) 0.5 % (0.0-2.0); Eosinophils # (auto) 0 10 ^3/uL (0-0.8); Eosinophils % (auto) 0.4 % (0.0-7.0); Hematocrit 45.3 % (41.0-53.0); Hemoglobin 15.3 g/dL (13.5-17.5); Lymphocytes # (auto) 1.5 10 ^3/uL (0.4-5.4); Lymphocytes % (auto) 26.7 % (10.0-50.0); Mean Corpuscular Hemoglobin 36.4 pg (28.0-32.0); Mean Corpuscular Hgb Conc. 33.8 g/dL (32.0-36.0); Mean Corpuscular Volume 107.6 fL (80.0-100.0); Monocytes # (auto) 0.3 10 ^3/uL (0-1.3); Monocytes % (auto) 5.9 % (0.0-12.0); Neutrophils # (auto) 3.7 10 ^3/uL (1.6-8.6); Neutrophils % (auto) 66.5 % (37.0-80.0); Nucleated Red Blood Cells % 0.1 %; Platelet Count (auto) 225 10^3/uL (140-450); Red Blood Cells 4.21 10^6/uL (4.5-5.90); Red Cell Distribution Width 12.6 % (11.8-14.3); White Blood Cell 5.6 10^3/uL (4.4-10.8)
[2019-09-14 11:31] LABS: Partial Thromboplastin Time 29.7 sec (23.64-32.05)
[~2019-09-16] VITALS: Ht 157.5 cm; Wt 52.2 kg
[~2019-09-16] MED LIST changes: -ASPI-404 PO; +ASPI-543 PO; -CALC600T4 PO; +CALC600T6 PO; +MULT-733 PO; -MULTTAB PO; +SODIUM CHLORIDE LOCK 10 ML ONE; +diphenhdrAMINE HCL 50 MG/1 ML VL ONE
[2019-09-16] MEDS: fentaNYL CITRATE 100 MCG/2 ML VL ONE ×3 (12:43→12:50)
[2019-09-16] MEDS: MIDAZOLAM HCL 5 MG/ML-1ML VIAL ONE ×4 (12:43→12:52)
[2019-09-19 11:20] VITALS: BP 149/80
== END | disposition home or self-care (01) ==
LOC: GI 10:55
PROVIDERS: ATTEND Internal Medicine Gastroenterology
DX: Z12.11 Encounter for screening for malignant neoplasm of colon (principal); K57.30 Diverticulosis of large intestine without perforation or abscess without bleeding; K64.0 First degree hemorrhoids; Z79.82 Long term (current) use of aspirin; Z79.899 Other long term (current) drug therapy; Z98.890 Other specified postprocedural states; Z11.59 Encounter for screening for other viral diseases; Z86.010 Personal history of colon polyps
CPT/HCPCS: 36415; 45378; 85025; 85610; 85730; J1200; J2250; J3010; J7030; U0003; 99152

== ENCOUNTER → 2019-12-05 | Outpatient (CLI) | payer OTHER ==
[~2019-12-05] MED LIST changes: -SODIUM CHLORIDE LOCK 10 ML ONE; -diphenhdrAMINE HCL 50 MG/1 ML VL ONE
[2019-12-05 10:16] LABS: Basophils # (auto) 0 10 ^3/uL (0-0.2); Basophils % (auto) 0.9 % (0.0-2.0); Eosinophils # (auto) 0 10 ^3/uL (0-0.8); Eosinophils % (auto) 0.7 % (0.0-7.0); Hematocrit 40.3 % (41.0-53.0); Hemoglobin 14.1 g/dL (13.5-17.5); Lymphocytes # (auto) 1.4 10 ^3/uL (0.4-5.4); Lymphocytes % (auto) 35.5 % (10.0-50.0); Mean Corpuscular Hemoglobin 37.3 pg (28.0-32.0); Mean Corpuscular Hgb Conc. 35.1 g/dL (32.0-36.0); Mean Corpuscular Volume 106.3 fL (80.0-100.0); Monocytes # (auto) 0.3 10 ^3/uL (0-1.3); Monocytes % (auto) 7.2 % (0.0-12.0); Neutrophils # (auto) 2.2 10 ^3/uL (1.6-8.6); Neutrophils % (auto) 55.7 % (37.0-80.0); Platelet Count (auto) 184 10^3/uL (140-450); Red Blood Cells 3.79 10^6/uL (4.5-5.90); Red Cell Distribution Width 12.4 % (11.8-14.3)
== END | disposition home or self-care (01) ==
LOC: LAB 09:57
PROVIDERS: ATTEND Internal Medicine
DX: D72.819 Decreased white blood cell count, unspecified (principal); R25.1 Tremor, unspecified
CPT/HCPCS: 36415; 84439; 84443; 85025

== ENCOUNTER 2020-03-15 05:53 | Day surgery (SDC) | payer OTHER ==
[2020-03-09 11:38] LABS: Urine WBC None Seen /hpf (0 - 3)
[2020-03-09 11:43] LABS: Basophils # (auto) 0 10 ^3/uL (0-0.2); Eosinophils # (auto) 0 10 ^3/uL (0-0.8); Hemoglobin 14.3 g/dL (13.5-17.5); Mean Corpuscular Volume 105.8 fL (80.0-100.0); Monocytes # (auto) 0.2 10 ^3/uL (0-1.3); Monocytes % (auto) 5.6 % (0.0-12.0)
[2020-03-09 11:45] LABS: Basophils % (auto) 1.1 % (0.0-2.0); Eosinophils % (auto) 0.1 % (0.0-7.0); Hematocrit 40.9 % (41.0-53.0); Lymphocytes # (auto) 1.2 10 ^3/uL (0.4-5.4); Lymphocytes % (auto) 30.8 % (10.0-50.0); Mean Corpuscular Hemoglobin 36.9 pg (28.0-32.0); Mean Corpuscular Hgb Conc. 34.9 g/dL (32.0-36.0); Neutrophils # (auto) 2.5 10 ^3/uL (1.6-8.6); Neutrophils % (auto) 62.4 % (37.0-80.0); Nucleated Red Blood Cells % 0.1 %; Platelet Count (auto) 195 10^3/uL (140-450); Red Blood Cells 3.86 10^6/uL (4.5-5.90); Red Cell Distribution Width 12.2 % (11.8-14.3)
[2020-03-09 11:57] LABS: INR 0.98 (0.9-1.15); Partial Thromboplastin Time 29.8 sec (23.0-31.2); Urine Bacteria NONE SEEN /hpf (None Seen); Urine Blood Negative /uL (Negative); Urine Specific Gravity 1.012 (1.001-1.035)
[2020-03-09 12:42] LABS: Calcium 9.1 mg/dL (8.5-10.1); Potassium 4.3 mmol/L (3.5-5.1)
[2020-03-09 12:46] LABS: Bilirubin, Total 0.6 mg/dL (0.2-1.0); Total Protein 7.4 g/dL (6.4-8.2)
[~2020-03-15] VITALS: Ht 157.5 cm; Wt 52.2 kg
[~2020-03-15 05:53] MED LIST changes: +METH10TA6 PO
[2020-03-15] MEDS ORDERED: CIPROFLOXACIN 400MG/200ML 200 ML IV ONE (06:58)
[2020-03-15] MEDS ORDERED: ONDANSETRON HCL 4 MG/2 ML VIAL ONE (07:14)
[2020-03-15] MEDS ORDERED: PROPOFOL 10 MG/ML 20 ML IV ONE (07:14)
[2020-03-15] MEDS ORDERED: MIDAZOLAM HCL 1MG/1ML-2 ML VIAL ONE (07:14)
[2020-03-15] MEDS ORDERED: GLYCOPYRROLATE 0.2 MG/ML 1ML VIAL ONE (07:14)
[2020-03-15] MEDS ORDERED: KETAMINE HCL 10 ML ONE (07:14)
[2020-03-15] MEDS ORDERED: LIDOCAINE 2% (LOCAL ANESTH.) PF 5ml SDV ONE (07:14)
[2020-03-15] MEDS ORDERED: ONDANSETRON HCL 4 MG/2 ML VIAL IV PRN (08:15)
[2020-03-15] MEDS ORDERED: HYDROmorphone HCL 2 MG/ML VL IV PRN (08:15)
[2020-03-15 08:30] VITALS: BP 128/60
== END 2020-03-15 09:00 | disposition home or self-care (01) ==
LOC: SUR 05:53
PROVIDERS: ATTEND Urology
DX: R97.20 Elevated prostate specific antigen [PSA] (principal); F17.200 Nicotine dependence, unspecified, uncomplicated; I10 Essential (primary) hypertension; J44.9 Chronic obstructive pulmonary disease, unspecified; Z98.890 Other specified postprocedural states; Z85.038 Personal history of other malignant neoplasm of large intestine; Z80.9 Family history of malignant neoplasm, unspecified; Z79.899 Other long term (current) drug therapy; Z20.822 Contact with and (suspected) exposure to COVID-19; Z79.82 Long term (current) use of aspirin
CPT/HCPCS: 36415; 55700; 76872; 80053; 81001; 85025; 85610; 85730; 88305; 88342; J0744; J2001; J2250; J2405; J2704; U0003

== ENCOUNTER → 2020-07-05 | Outpatient (CLI) | payer OTHER ==
[2020-07-05 10:38] LABS: Basophils # (auto) 0.1 10 ^3/uL (0-0.2); Basophils % (auto) 1.1 % (0.0-2.0); Eosinophils # (auto) 0 10 ^3/uL (0-0.8); Eosinophils % (auto) 0.7 % (0.0-7.0); Hematocrit 41.2 % (41.0-53.0); Hemoglobin 14.8 g/dL (13.5-17.5); Lymphocytes # (auto) 1.5 10 ^3/uL (0.4-5.4); Lymphocytes % (auto) 27.2 % (10.0-50.0); Mean Corpuscular Hemoglobin 38.5 pg (28.0-32.0); Mean Corpuscular Hgb Conc. 36.1 g/dL (32.0-36.0); Mean Corpuscular Volume 106.8 fL (80.0-100.0); Monocytes # (auto) 0.3 10 ^3/uL (0-1.3); Monocytes % (auto) 6.2 % (0.0-12.0); Neutrophils # (auto) 3.6 10 ^3/uL (1.6-8.6); Neutrophils % (auto) 64.8 % (37.0-80.0); Nucleated Red Blood Cells % 0.1 %; Platelet Count (auto) 202 10^3/uL (140-450); Red Blood Cells 3.85 10^6/uL (4.5-5.90); Red Cell Distribution Width 12.7 % (11.8-14.3); White Blood Cell 5.5 10^3/uL (4.4-10.8)
[2020-07-05 10:48] LABS: INR 0.99 (0.9-1.15)
[2020-07-05 10:58] LABS: Potassium 4.3 mmol/L (3.5-5.1)
[2020-07-05 11:08] LABS: Albumin 3.7 g/dL (3.4-5.0); BUN/Creatinine Ratio 17.6; Bilirubin, Total 0.5 mg/dL (0.2-1.0); Calcium 9.6 mg/dL (8.5-10.1); Total Protein 6.7 g/dL (6.4-8.2)
[2020-07-05 11:09] LABS: Free T4 (Free Thyroxine) 0.92 ng/dL (0.89-1.76)
[2020-07-05 11:10] LABS: Prostate Specific Antigen 3.24 ng/mL (0.0-4.0)
[2020-07-05 11:11] LABS: Folate (Folic Acid) > 24.00 ng/mL (5.38-24)
[2020-07-05 11:22] LABS: Urine Bacteria NONE SEEN /hpf (None Seen); Urine Blood Negative /uL (Negative); Urine Mucus FEW (None Seen); Urine Specific Gravity 1.026 (1.001-1.035); Urine WBC 2 /hpf (0 - 3)
== END | disposition home or self-care (01) ==
LOC: LAB 09:28
PROVIDERS: ATTEND Internal Medicine
DX: I10 Essential (primary) hypertension (principal); J44.9 Chronic obstructive pulmonary disease, unspecified; K70.10 Alcoholic hepatitis without ascites
CPT/HCPCS: 36415; 80053; 80061; 81001; 82607; 82746; 84153; 84439; 84443; 85025; 85610; 85652

== ENCOUNTER → 2020-09-04 | Outpatient (CLI) | payer OTHER | END | disposition home or self-care (01) | LOC: LAB 08:18 | PROVIDERS: ATTEND Urology | DX: R97.20 Elevated prostate specific antigen [PSA] (principal) | CPT/HCPCS: 84154 ==

== ENCOUNTER → 2021-03-04 | Outpatient (CLI) | payer OTHER ==
[2021-03-04 12:29] LABS: Basophils # (auto) 0 10 ^3/uL (0-0.2); Eosinophils # (auto) 0 10 ^3/uL (0-0.8); Monocytes # (auto) 0.2 10 ^3/uL (0-1.3); Neutrophils # (auto) 1.9 10 ^3/uL (1.6-8.6)
[2021-03-04 12:32] LABS: Eosinophils % (auto) 0.4 % (0.0-7.0); Hematocrit 40.1 % (41.0-53.0); Hemoglobin 13.8 g/dL (13.5-17.5); Lymphocytes # (auto) 0.7 10 ^3/uL (0.4-5.4); Lymphocytes % (auto) 25.1 % (10.0-50.0); Mean Corpuscular Hemoglobin 36.6 pg (28.0-32.0); Mean Corpuscular Hgb Conc. 34.5 g/dL (32.0-36.0); Mean Corpuscular Volume 106.1 fL (80.0-100.0); Neutrophils % (auto) 67.5 % (37.0-80.0); Red Blood Cells 3.78 10^6/uL (4.5-5.90); Red Cell Distribution Width 12.6 % (11.8-14.3); White Blood Cell 2.8 10^3/uL (4.4-10.8)
[2021-03-04 13:30] LABS: Albumin 3.9 g/dL (3.4-5.0); Calcium 9.2 mg/dL (8.5-10.1); Potassium 4.3 mmol/L (3.5-5.1)
[2021-03-04 13:33] LABS: Bilirubin, Total 0.5 mg/dL (0.2-1.0); Total Protein 6.7 g/dL (6.4-8.2)
== END | disposition home or self-care (01) ==
LOC: LAB 11:40
PROVIDERS: ATTEND Internal Medicine
DX: I10 Essential (primary) hypertension (principal); R40.0 Somnolence
CPT/HCPCS: 36415; 80053; 82140; 84439; 84443; 85025

== ENCOUNTER → 2021-04-03 | Outpatient (CLI) | payer OTHER ==
[2021-04-03 09:26] LABS: Eosinophils # (auto) 0 10 ^3/uL (0-0.8); Lymphocytes # (auto) 1.4 10 ^3/uL (0.4-5.4); Monocytes # (auto) 0.3 10 ^3/uL (0-1.3); White Blood Cell 4.5 10^3/uL (4.4-10.8)
[2021-04-03 09:36] LABS: Basophils # (auto) 0 10 ^3/uL (0-0.2); Eosinophils % (auto) 0.7 % (0.0-7.0); Hematocrit 40.7 % (41.0-53.0); Hemoglobin 14.1 g/dL (13.5-17.5); Lymphocytes % (auto) 31.6 % (10.0-50.0); Mean Corpuscular Hemoglobin 35.7 pg (28.0-32.0); Mean Corpuscular Hgb Conc. 34.6 g/dL (32.0-36.0); Mean Corpuscular Volume 103.2 fL (80.0-100.0); Monocytes % (auto) 6.2 % (0.0-12.0); Neutrophils # (auto) 2.7 10 ^3/uL (1.6-8.6); Neutrophils % (auto) 60.5 % (37.0-80.0); Nucleated Red Blood Cells % 0.1 %; Red Blood Cells 3.94 10^6/uL (4.5-5.90); Red Cell Distribution Width 11.8 % (11.8-14.3)
[2021-04-03 10:38] LABS: Alanine Aminotransferase 55 U/L (16-61); Aspartate Aminotransferase 46 U/L (15-37)
== END | disposition home or self-care (01) ==
LOC: LAB 08:56
PROVIDERS: ATTEND Internal Medicine
DX: K70.10 Alcoholic hepatitis without ascites (principal)
CPT/HCPCS: 36415; 82140; 84450; 84460; 85025

== ENCOUNTER → 2021-08-05 | Outpatient (CLI) | payer OTHER ==
[2021-08-05 09:17] LABS: Basophils # (auto) 0.2 10 ^3/uL (0-0.2); Monocytes # (auto) 0.2 10 ^3/uL (0-1.3); Red Cell Distribution Width 12.1 % (11.8-14.3)
[2021-08-05 09:19] LABS: Basophils % (auto) 5.5 % (0.0-2.0); Eosinophils # (auto) 0 10 ^3/uL (0-0.8); Eosinophils % (auto) 0.7 % (0.0-7.0); Hematocrit 38.8 % (41.0-53.0); Lymphocytes # (auto) 1.5 10 ^3/uL (0.4-5.4); Lymphocytes % (auto) 34.2 % (10.0-50.0); Mean Corpuscular Hemoglobin 38.3 pg (28.0-32.0); Mean Corpuscular Hgb Conc. 36.2 g/dL (32.0-36.0); Mean Corpuscular Volume 105.8 fL (80.0-100.0); Neutrophils # (auto) 2.4 10 ^3/uL (1.6-8.6); Neutrophils % (auto) 55.6 % (37.0-80.0); Red Blood Cells 3.66 10^6/uL (4.5-5.90); White Blood Cell 4.4 10^3/uL (4.4-10.8)
[2021-08-05 09:22] LABS: Urine Bacteria NONE SEEN /hpf (None Seen); Urine Blood Negative /uL (Negative); Urine Specific Gravity 1.017 (1.001-1.035); Urine WBC <1 /hpf (0 - 3)
[2021-08-05 09:47] LABS: Potassium 4.6 mmol/L (3.5-5.1)
[2021-08-05 09:51] LABS: Free T4 (Free Thyroxine) 0.92 ng/dL (0.89-1.76)
[2021-08-05 09:52] LABS: Prostate Specific Antigen 2.91 ng/mL (0.0-4.0)
[2021-08-05 09:55] LABS: Albumin 3.7 g/dL (3.4-5.0); BUN/Creatinine Ratio 14.3; Bilirubin, Total 0.6 mg/dL (0.2-1.0); Calcium 9.1 mg/dL (8.5-10.1); Total Protein 6.9 g/dL (6.4-8.2)
== END | disposition home or self-care (01) ==
LOC: LAB 08:32
PROVIDERS: ATTEND Internal Medicine
DX: K70.10 Alcoholic hepatitis without ascites (principal); I10 Essential (primary) hypertension
CPT/HCPCS: 36415; 80053; 80061; 81001; 84153; 84439; 84443; 85025; 85652

== ENCOUNTER → 2021-11-18 | Outpatient (CLI) | payer OTHER ==
[2021-11-18 13:54] LABS: Basophils # (auto) 0 10 ^3/uL (0-0.2); Basophils % (auto) 0.8 % (0.0-2.0); Eosinophils # (auto) 0 10 ^3/uL (0-0.8); Monocytes # (auto) 0.3 10 ^3/uL (0-1.3); Neutrophils # (auto) 3.2 10 ^3/uL (1.6-8.6)
[2021-11-18 13:57] LABS: Eosinophils % (auto) 0.2 % (0.0-7.0); Hematocrit 37.6 % (41.0-53.0); Lymphocytes # (auto) 0.8 10 ^3/uL (0.4-5.4); Lymphocytes % (auto) 19.5 % (10.0-50.0); Mean Corpuscular Hemoglobin 36.7 pg (28.0-32.0); Mean Corpuscular Hgb Conc. 34.7 g/dL (32.0-36.0); Mean Corpuscular Volume 105.8 fL (80.0-100.0); Monocytes % (auto) 6.1 % (0.0-12.0); Neutrophils % (auto) 73.4 % (37.0-80.0); Nucleated Red Blood Cells % 0.1 %; Red Blood Cells 3.56 10^6/uL (4.5-5.90); Red Cell Distribution Width 12.5 % (11.8-14.3); White Blood Cell 4.3 10^3/uL (4.4-10.8)
[2021-11-18 14:15] LABS: INR 1.03 (0.9-1.15)
[2021-11-18 14:38] LABS: Albumin 3.7 g/dL (3.4-5.0); BUN/Creatinine Ratio 11.5; Calcium 9.1 mg/dL (8.5-10.1); Potassium 4.1 mmol/L (3.5-5.1)
[2021-11-18 14:49] LABS: Bilirubin, Total 0.5 mg/dL (0.2-1.0); Total Protein 6.3 g/dL (6.4-8.2)
[2021-11-18 14:56] LABS: Thyroid Stimulating Hormone 1.72 uIU/mL (0.358-3.74)
== END | disposition home or self-care (01) ==
LOC: LAB 13:27
PROVIDERS: ATTEND Internal Medicine
DX: K70.10 Alcoholic hepatitis without ascites (principal); R63.0 Anorexia
CPT/HCPCS: 36415; 80053; 82140; 83615; 84439; 84443; 85025; 85610; 85652

== ENCOUNTER → 2021-12-19 | Outpatient (CLI) | payer OTHER | END | disposition home or self-care (01) | LOC: LAB 14:28 | PROVIDERS: ATTEND Internal Medicine | DX: L03.114 Cellulitis of left upper limb (principal) | CPT/HCPCS: 87205 ==

== ENCOUNTER → 2022-01-03 | Outpatient (CLI) | payer OTHER | END | disposition home or self-care (01) | LOC: LAB 11:23 | PROVIDERS: ATTEND Family Medicine | DX: L72.0 Epidermal cyst (principal); L91.0 Hypertrophic scar; D48.5 Neoplasm of uncertain behavior of skin | CPT/HCPCS: 88302 ==

== ENCOUNTER → 2022-02-11 | Outpatient (CLI) | payer OTHER | END | disposition home or self-care (01) | LOC: XYW 12:21 | PROVIDERS: ATTEND Internal Medicine | DX: I08.0 Rheumatic disorders of both mitral and aortic valves (principal); R07.89 Other chest pain | CPT/HCPCS: 93306 ==

== ENCOUNTER → 2022-02-19 | Outpatient (CLI) | payer OTHER ==
[~2022-02-19] VITALS: Ht 157.5 cm; Wt 53.1 kg
[~2022-02-19] MED LIST changes: +REGADENOSON 0.4 MG/5 ML SYRG IV ONE
[2022-02-19 10:13] VITALS: BP 152/80
== END | disposition home or self-care (01) ==
LOC: XYW 08:29
PROVIDERS: ATTEND Internal Medicine
DX: R07.89 Other chest pain (principal); J44.9 Chronic obstructive pulmonary disease, unspecified
CPT/HCPCS: 78452; 93017; A9500; J2785

== ENCOUNTER → 2022-03-06 | Outpatient (CLI) | payer OTHER ==
[~2022-03-06] MED LIST changes: -REGADENOSON 0.4 MG/5 ML SYRG IV ONE
[2022-03-06 13:37] LABS: Basophils # (auto) 0 10 ^3/uL (0-0.2); Eosinophils # (auto) 0 10 ^3/uL (0-0.8); Eosinophils % (auto) 0.2 % (0.0-7.0); Monocytes # (auto) 0.3 10 ^3/uL (0-1.3); Neutrophils # (auto) 2.9 10 ^3/uL (1.6-8.6)
[2022-03-06 13:39] LABS: Basophils % (auto) 0.5 % (0.0-2.0); Hematocrit 40.3 % (41.0-53.0); Hemoglobin 13.9 g/dL (13.5-17.5); Lymphocytes % (auto) 24.3 % (10.0-50.0); Mean Corpuscular Hgb Conc. 34.4 g/dL (32.0-36.0); Mean Corpuscular Volume 107.5 fL (80.0-100.0); Monocytes % (auto) 6.4 % (0.0-12.0); Neutrophils % (auto) 68.6 % (37.0-80.0); Nucleated Red Blood Cells % 0.1 %; Red Blood Cells 3.75 10^6/uL (4.5-5.90); Red Cell Distribution Width 12.1 % (11.8-14.3); White Blood Cell 4.3 10^3/uL (4.4-10.8)
[2022-03-06 13:53] LABS: Albumin 3.8 g/dL (3.4-5.0); Calcium 9.6 mg/dL (8.5-10.1); Potassium 4.2 mmol/L (3.5-5.1)
[2022-03-06 13:56] LABS: Bilirubin, Total 0.8 mg/dL (0.2-1.0)
== END | disposition home or self-care (01) ==
LOC: LAB 13:26
PROVIDERS: ATTEND Internal Medicine
DX: I10 Essential (primary) hypertension (principal); K21.9 Gastro-esophageal reflux disease without esophagitis
CPT/HCPCS: 36415; 80053; 82150; 83690; 85025

== ENCOUNTER → 2022-06-23 | Outpatient (CLI) | payer OTHER ==
[2022-06-23 09:49] LABS: Basophils # (auto) 0 10 ^3/uL (0-0.2); Eosinophils # (auto) 0 10 ^3/uL (0-0.8); Hemoglobin 14.4 g/dL (13.5-17.5); Monocytes # (auto) 0.3 10 ^3/uL (0-1.3); Neutrophils # (auto) 1.6 10 ^3/uL (1.6-8.6); White Blood Cell 3.1 10^3/uL (4.4-10.8)
[2022-06-23 09:50] LABS: Basophils % (auto) 1.1 % (0.0-2.0); Eosinophils % (auto) 1.4 % (0.0-7.0); Hematocrit 41.4 % (41.0-53.0); Lymphocytes # (auto) 1.1 10 ^3/uL (0.4-5.4); Lymphocytes % (auto) 36.4 % (10.0-50.0); Mean Corpuscular Hemoglobin 36.7 pg (28.0-32.0); Mean Corpuscular Hgb Conc. 34.7 g/dL (32.0-36.0); Mean Corpuscular Volume 105.8 fL (80.0-100.0); Neutrophils % (auto) 52.1 % (37.0-80.0); Nucleated Red Blood Cells % 0.1 %; Red Blood Cells 3.92 10^6/uL (4.5-5.90); Red Cell Distribution Width 12.9 % (11.8-14.3)
[2022-06-23 10:19] LABS: Urine Bacteria NONE SEEN /hpf (None Seen); Urine Blood Negative /uL (Negative); Urine Mucus FEW (None Seen); Urine WBC 1 /hpf (0 - 3)
[2022-06-23 10:23] LABS: Albumin 3.8 g/dL (3.4-5.0); Calcium 9.2 mg/dL (8.5-10.1); Potassium 4.2 mmol/L (3.5-5.1)
[2022-06-23 10:30] LABS: BUN/Creatinine Ratio 11.5 (10.0-20.0); Bilirubin, Total 0.6 mg/dL (0.2-1.0); Total Protein 6.8 g/dL (6.4-8.2)
== END | disposition home or self-care (01) ==
LOC: LAB 09:28
PROVIDERS: ATTEND Internal Medicine
DX: I10 Essential (primary) hypertension (principal); K70.10 Alcoholic hepatitis without ascites
CPT/HCPCS: 36415; 80053; 80061; 81001; 82140; 84439; 84443; 85025; 85610; 85652

== ENCOUNTER 2022-08-15 08:05 | Day surgery (SDC) | payer OTHER ==
[2022-08-13 11:29] LABS: Basophils # (auto) 0 10 ^3/uL (0-0.2); Eosinophils # (auto) 0 10 ^3/uL (0-0.8); Eosinophils % (auto) 0.9 % (0.0-7.0); Lymphocytes # (auto) 1.3 10 ^3/uL (0.4-5.4); Mean Corpuscular Hemoglobin 37.8 pg (28.0-32.0); Monocytes # (auto) 0.3 10 ^3/uL (0-1.3)
[2022-08-13 11:31] LABS: Basophils % (auto) 0.8 % (0.0-2.0); Hematocrit 39.5 % (41.0-53.0); Hemoglobin 13.8 g/dL (13.5-17.5); Lymphocytes % (auto) 34.7 % (10.0-50.0); Mean Corpuscular Hgb Conc. 34.8 g/dL (32.0-36.0); Mean Corpuscular Volume 108.6 fL (80.0-100.0); Monocytes % (auto) 7.5 % (0.0-12.0); Neutrophils % (auto) 56.1 % (37.0-80.0); Nucleated Red Blood Cells % 0.1 %; Red Blood Cells 3.64 10^6/uL (4.5-5.90); White Blood Cell 3.6 10^3/uL (4.4-10.8)
[2022-08-13 11:47] LABS: INR 0.95 (0.9-1.15)
[2022-08-13 11:48] LABS: Urine Bacteria NONE SEEN /hpf (None Seen); Urine Blood Negative /uL (Negative); Urine Hyaline Cast MANY /lpf (0 - 2); Urine Mucus FEW (None Seen); Urine Specific Gravity 1.023 (1.001-1.035); Urine WBC 1 /hpf (0 - 3)
[2022-08-13 11:51] LABS: Albumin 3.5 g/dL (3.4-5.0); BUN/Creatinine Ratio 9.5 (10.0-20.0); Calcium 9.2 mg/dL (8.5-10.1); Potassium 4.4 mmol/L (3.5-5.1)
[2022-08-13 11:54] LABS: Bilirubin, Total 0.5 mg/dL (0.2-1.0); Total Protein 6.8 g/dL (6.4-8.2)
[~2022-08-15] VITALS: Ht 157.5 cm; Wt 52.2 kg
[~2022-08-15 08:05] MED LIST changes: -ALBUAER3 IN; -ATOR20TA50 PO; -FLUT1SPR21; -LOSA-69 PO; +LOSA50TA46 PO; -METH10TA6 PO
[2022-08-15] MEDS ORDERED: NALOXONE HCL 0.4 MG/ML VIAL ONE (08:27)
[2022-08-15] MEDS ORDERED: FLUMAZENIL 0.1 MG/ML INJ 10ML MDV IV ONE (08:27)
[2022-08-15] MEDS ORDERED: MIDAZOLAM HCL 2MG/2ML 2ml VIAL (1mg/ml) ONE (09:36)
[2022-08-15] MEDS ORDERED: DexAMETHasone SOD PHOS 10MG/1ML VIAL INJ ONE (09:36)
[2022-08-15] MEDS ORDERED: fentaNYL CITRATE 100 MCG/2 ML VL ONE (09:36)
[2022-08-15] MEDS ORDERED: PROPOFOL 10 MG/ML 20 ML IV ONE (09:37)
[2022-08-15] MEDS ORDERED: LIDOCAINE VISCOUS 2% 15ML UD ONE (09:52)
[2022-08-15] MEDS ORDERED: ONDANSETRON HCL 4 MG/2 ML VIAL IV PRN (10:30)
[2022-08-15] MEDS ORDERED: ePHEDrine SULFATE 50 MG/ML AMP IV PRN (10:30)
[2022-08-15] MEDS ORDERED: MIDAZOLAM HCL 2MG/2ML 2ml VIAL (1mg/ml) IV PRN (10:30)
[2022-08-15] MEDS ORDERED: MORPHINE SULFATE 4 MG/ML SYR/VIAL IV PRN (10:30)
[2022-08-15] MEDS ORDERED: LABETALOL HCL 5 MG/ML 4ML SYRINGE IV PRN (10:30)
[2022-08-15 10:53] VITALS: BP 122/52
== END 2022-08-15 11:04 | disposition home or self-care (01) ==
LOC: GI 08:05
PROVIDERS: ATTEND Internal Medicine Gastroenterology
DX: R13.10 Dysphagia, unspecified (principal); K22.2 Esophageal obstruction; K44.9 Diaphragmatic hernia without obstruction or gangrene; K22.70 Barrett's esophagus without dysplasia; K21.00 Gastro-esophageal reflux disease with esophagitis, without bleeding; K26.9 Duodenal ulcer, unspecified as acute or chronic, without hemorrhage or perforation; K29.90 Gastroduodenitis, unspecified, without bleeding; Z87.891 Personal history of nicotine dependence; I10 Essential (primary) hypertension; Z79.899 Other long term (current) drug therapy
CPT/HCPCS: 36415; 43239; 43450; 80053; 81001; 85025; 85610; 85730; J1100; J2250; J2704; J3010; J7030

== ENCOUNTER → 2022-12-08 | Outpatient (CLI) | payer OTHER ==
[2022-12-08 10:55] LABS: Basophils # (auto) 0 10 ^3/uL (0-0.2); Eosinophils # (auto) 0 10 ^3/uL (0-0.8); Eosinophils % (auto) 0.7 % (0.0-7.0); Hemoglobin 13.6 g/dL (13.5-17.5); Lymphocytes # (auto) 1.5 10 ^3/uL (0.4-5.4); Red Cell Distribution Width 11.8 % (11.8-14.3)
[2022-12-08 10:57] LABS: Basophils % (auto) 0.5 % (0.0-2.0); Hematocrit 38.9 % (41.0-53.0); Lymphocytes % (auto) 24.3 % (10.0-50.0); Mean Corpuscular Hemoglobin 37.6 pg (28.0-32.0); Mean Corpuscular Hgb Conc. 34.9 g/dL (32.0-36.0); Mean Corpuscular Volume 107.6 fL (80.0-100.0); Monocytes # (auto) 0.4 10 ^3/uL (0-1.3); Neutrophils # (auto) 4.1 10 ^3/uL (1.6-8.6); Neutrophils % (auto) 67.5 % (37.0-80.0); Nucleated Red Blood Cells % 0.1 %; Red Blood Cells 3.61 10^6/uL (4.5-5.90); White Blood Cell 6.1 10^3/uL (4.4-10.8)
[2022-12-08 12:15] LABS: Alanine Aminotransferase 26 U/L (7-40); Albumin 3.9 g/dL (3.2-4.8); Alkaline Phosphatase 64 U/L (46-116); Anion Gap 3 (5-15); Aspartate Aminotransferase 35 U/L (13-40); Blood Urea Nitrogen 6 mg/dL (9-23); Calcium 9.5 mg/dL (8.7-10.4); Carbon Dioxide 30 mmol/L (20-30); Chloride 103 mmol/L (98-107); Glucose 97 mg/dL (74-106); Potassium 4.6 mmol/L (3.5-5.1); Sodium 136 mmol/L (136-145)
[2022-12-08 12:16] LABS: Bilirubin, Total 0.5 mg/dL (0.2-1.0); Total Protein 6.2 g/dL (5.7-8.2)
[2022-12-08 12:20] LABS: BUN/Creatinine Ratio 6.1 (10.0-20.0)
== END | disposition home or self-care (01) ==
LOC: LAB 10:39
PROVIDERS: ATTEND Internal Medicine
DX: K21.9 Gastro-esophageal reflux disease without esophagitis (principal); K70.10 Alcoholic hepatitis without ascites
CPT/HCPCS: 36415; 80053; 84153; 85025

== ENCOUNTER → 2023-01-30 | Day surgery (SDC) | payer OTHER ==
[2023-01-27 13:47] LABS: Alanine Aminotransferase 22 U/L (7-40); Albumin 4.2 g/dL (3.2-4.8); Alkaline Phosphatase 71 U/L (46-116); Anion Gap 3 (5-15); Aspartate Aminotransferase 26 U/L (13-40); BUN/Creatinine Ratio 9.3 (10.0-20.0); Blood Urea Nitrogen 8 mg/dL (9-23); Calcium 9.9 mg/dL (8.5-10.1); Carbon Dioxide 31 mmol/L (20-30); Chloride 101 mmol/L (98-107); Glucose 91 mg/dL (74-106); INR 0.99 (0.9-1.15); Partial Thromboplastin Time 31.3 SEC (24.5-34.5); Potassium 4.6 mmol/L (3.5-5.1); Prothrombin Time 10.4 sec (9.3-11.8); Sodium 135 mmol/L (136-145)
[2023-01-27 13:48] LABS: Bilirubin, Total 0.3 mg/dL (0.2-1.0); Total Protein 6.4 g/dL (5.7-8.2)
[2023-01-27 13:49] LABS: Lymphocytes # (auto) 1.8 10 ^3/uL (0.4-5.4); Monocytes # (auto) 0.4 10 ^3/uL (0-1.3); White Blood Cell 5.3 10^3/uL (4.4-10.8)
[2023-01-27 13:51] LABS: Basophils # (auto) 0 10 ^3/uL (0-0.2); Basophils % (auto) 0.8 % (0.0-2.0); Eosinophils # (auto) 0 10 ^3/uL (0-0.8); Eosinophils % (auto) 0.9 % (0.0-7.0); Hematocrit 39.4 % (41.0-53.0); Hemoglobin 13.8 g/dL (13.5-17.5); Lymphocytes % (auto) 34.4 % (10.0-50.0); Mean Corpuscular Hemoglobin 36.1 pg (28.0-32.0); Mean Corpuscular Volume 103.3 fL (80.0-100.0); Monocytes % (auto) 6.8 % (0.0-12.0); Neutrophils % (auto) 57.1 % (37.0-80.0); Red Blood Cells 3.81 10^6/uL (4.5-5.90); Red Cell Distribution Width 11.9 % (11.8-14.3)
[~2023-01-30] VITALS: Ht 157.5 cm; Wt 52.2 kg
[~2023-01-30] MED LIST changes: +B-COTAB59 OR; +DICY10CA PO; +LIDOCAINE VISCOUS 2% 15ML UD ONE; +MIDAZOLAM HCL 5 MG/ML-1ML VIAL ONE; +OMEP20TA PO; +SODIUM CHLORIDE LOCK 10 ML ONE; +SUCR1TAB22 OR; +fentaNYL CITRATE 100 MCG/2 ML VL ONE
[2023-01-30 14:36] VITALS: TEMP 97.6
[2023-01-30 16:16] VITALS: O2SAT 100
[2023-01-30] MEDS: diphenhdrAMINE HCL 50 MG/1 ML VL ONE ×2 (16:24→16:26)
[2023-01-30 16:36] VITALS: PULSE 69; RESP 13; O2SAT 96
[2023-01-30 17:05] VITALS: BP 130/71; PULSE 64; RESP 13; O2SAT 97
== END | disposition home or self-care (01) ==
LOC: GI 13:14
PROVIDERS: ATTEND Internal Medicine Gastroenterology
DX: K22.719 Barrett's esophagus with dysplasia, unspecified (principal); K29.90 Gastroduodenitis, unspecified, without bleeding; K44.9 Diaphragmatic hernia without obstruction or gangrene; I10 Essential (primary) hypertension; F17.290 Nicotine dependence, other tobacco product, uncomplicated; Z80.9 Family history of malignant neoplasm, unspecified; Z82.5 Family history of asthma and other chronic lower respiratory diseases; Z72.89 Other problems related to lifestyle; Z98.890 Other specified postprocedural states; Z79.899 Other long term (current) drug therapy
CPT/HCPCS: 36415; 43239; 80053; 85025; 85610; 85730; J1200; J2250; J3010; J7030

== ENCOUNTER 2023-03-25 09:03 | Day surgery (SDC) | payer OTHER ==
[2023-03-23 11:32] LABS: Basophils # (auto) 0 10 ^3/uL (0-0.2); Basophils % (auto) 0.7 % (0.0-2.0); Eosinophils # (auto) 0.1 10 ^3/uL (0-0.8); Eosinophils % (auto) 0.9 % (0.0-7.0); Hematocrit 38.5 % (41.0-53.0); Hemoglobin 13.3 g/dL (13.5-17.5); Lymphocytes # (auto) 2.2 10 ^3/uL (0.4-5.4); Lymphocytes % (auto) 40.4 % (10.0-50.0); Mean Corpuscular Hemoglobin 34.3 pg (28.0-32.0); Mean Corpuscular Hgb Conc. 34.5 g/dL (32.0-36.0); Mean Corpuscular Volume 99.5 fL (80.0-100.0); Monocytes # (auto) 0.4 10 ^3/uL (0-1.3); Monocytes % (auto) 7.7 % (0.0-12.0); Neutrophils # (auto) 2.8 10 ^3/uL (1.6-8.6); Neutrophils % (auto) 50.3 % (37.0-80.0); Red Blood Cells 3.87 10^6/uL (4.5-5.90); Red Cell Distribution Width 12.3 % (11.8-14.3); White Blood Cell 5.5 10^3/uL (4.4-10.8)
[2023-03-23 11:47] LABS: INR 1.01 (0.9-1.15); Partial Thromboplastin Time 32.1 SEC (24.5-34.5); Prothrombin Time 10.6 sec (9.3-11.8)
[2023-03-23 12:01] LABS: Alanine Aminotransferase 16 U/L (7-40); Albumin 4.2 g/dL (3.2-4.8); Alkaline Phosphatase 73 U/L (46-116); Anion Gap 0 (5-15); Aspartate Aminotransferase 17 U/L (13-40); BUN/Creatinine Ratio 7.3 (10.0-20.0); Blood Urea Nitrogen 7 mg/dL (9-23); Carbon Dioxide 31 mmol/L (20-30); Chloride 106 mmol/L (98-107); Glucose 75 mg/dL (74-106); Potassium 4.5 mmol/L (3.5-5.1); Sodium 137 mmol/L (136-145)
[2023-03-23 12:02] LABS: Bilirubin, Total 0.3 mg/dL (0.2-1.0); Total Protein 6.3 g/dL (5.7-8.2)
[~2023-03-25] VITALS: Ht 157.5 cm; Wt 49.9 kg
[~2023-03-25 09:03] MED LIST changes: -LIDOCAINE VISCOUS 2% 15ML UD ONE; -MIDAZOLAM HCL 5 MG/ML-1ML VIAL ONE; -SODIUM CHLORIDE LOCK 10 ML ONE; -fentaNYL CITRATE 100 MCG/2 ML VL ONE
[2023-03-25] MEDS ORDERED: MIDAZOLAM HCL 5 MG/ML-1ML VIAL ONE (09:09)
[2023-03-25] MEDS ORDERED: SODIUM CHLORIDE LOCK 10 ML ONE (09:09)
[2023-03-25] MEDS ORDERED: diphenhdrAMINE HCL 50 MG/1 ML VL ONE (09:10)
[2023-03-25] MEDS ORDERED: fentaNYL CITRATE 100 MCG/2 ML VL ONE (09:10)
[2023-03-25 11:05] VITALS: O2SAT 100
[2023-03-25 11:42] VITALS: TEMP 98.8; O2SAT 99
== END 2023-03-25 12:34 | disposition home or self-care (01) ==
LOC: GI 09:03
PROVIDERS: ATTEND Internal Medicine Gastroenterology
DX: Z09 Encounter for follow-up examination after completed treatment for conditions other than malignant neoplasm (principal); K57.30 Diverticulosis of large intestine without perforation or abscess without bleeding; K64.8 Other hemorrhoids; I10 Essential (primary) hypertension; J44.9 Chronic obstructive pulmonary disease, unspecified; Z98.890 Other specified postprocedural states; Z79.899 Other long term (current) drug therapy; K63.89 Other specified diseases of intestine
CPT/HCPCS: 36415; 45378; 80053; 85025; 85610; 85730; J1200; J2250; J3010; 99152

== ENCOUNTER → 2023-07-08 | Outpatient (CLI) | payer OTHER ==
[~2023-07-08] MED LIST changes: +LOSA-534 PO; -LOSA50TA46 PO; -OMEP20TA PO; +PANT40T PO; -SUCR1TAB22 OR; +SUCR1TAB31 OR
[2023-07-08 09:20] LABS: Urine Bacteria None Seen /hpf (None Seen)
[2023-07-08 09:30] LABS: Basophils # (auto) 0 10 ^3/uL (0-0.2); Basophils % (auto) 0.8 % (0.0-2.0); Eosinophils # (auto) 0.1 10 ^3/uL (0-0.8); Eosinophils % (auto) 2.3 % (0.0-7.0); Hematocrit 40.3 % (41.0-53.0); Hemoglobin 13.6 g/dL (13.5-17.5); Lymphocytes # (auto) 1.7 10 ^3/uL (0.4-5.4); Lymphocytes % (auto) 30.7 % (10.0-50.0); Mean Corpuscular Hemoglobin 33.1 pg (28.0-32.0); Mean Corpuscular Hgb Conc. 33.6 g/dL (32.0-36.0); Mean Corpuscular Volume 98.3 fL (80.0-100.0); Monocytes # (auto) 0.4 10 ^3/uL (0-1.3); Monocytes % (auto) 6.4 % (0.0-12.0); Neutrophils # (auto) 3.3 10 ^3/uL (1.6-8.6); Neutrophils % (auto) 59.8 % (37.0-80.0); Nucleated Red Blood Cells % 0.1 %; Red Cell Distribution Width 12.9 % (11.8-14.3); White Blood Cell 5.6 10^3/uL (4.4-10.8)
[2023-07-08 09:37] LABS: Urine Blood Negative /uL (Negative); Urine Clarity Clear (Clear); Urine Color Yellow (Yellow); Urine Protein, UAD Negative (Negative); Urine Specific Gravity 1.011 (1.001-1.035); Urine Urobilinogen Normal (Negative); Urine WBC <1 /hpf (0 - 3)
[2023-07-08 09:50] LABS: INR 1.05 (0.9-1.15); Prothrombin Time 11.1 sec (9.3-11.8)
[2023-07-08 10:09] LABS: Erythrocyte Sedimentation Rate 12 mm/hr (0-20)
[2023-07-08 10:29] LABS: Alanine Aminotransferase 14 U/L (7-40); Alkaline Phosphatase 87 U/L (46-116); Anion Gap 1 (5-15); BUN/Creatinine Ratio 11.4 (10.0-20.0); Blood Urea Nitrogen 13 mg/dL (9-23); Calcium 10.2 mg/dL (8.5-10.1); Carbon Dioxide 30 mmol/L (20-30); Chloride 107 mmol/L (98-107); Glucose 104 mg/dL (74-106); LDL Cholesterol 136 mg/dL (< 100); Potassium 4.3 mmol/L (3.5-5.1); Sodium 138 mmol/L (136-145); Triglycerides 197 mg/dL (< 150)
[2023-07-08 10:30] LABS: Albumin 4.4 g/dL (3.2-4.8); Aspartate Aminotransferase 16 U/L (13-40); Bilirubin, Total 0.5 mg/dL (0.2-1.0); Cholesterol 190 mg/dL (< 200); HDL Cholesterol 36 mg/dL (40-59)
[2023-07-08 10:31] LABS: Thyroid Stimulating Hormone 2.51 uIU/mL (0.55-4.78); Total Protein 6.6 g/dL (5.7-8.2)
[2023-07-08 10:33] LABS: Free T4 (Free Thyroxine) 0.81 ng/dL (0.89-1.76)
[2023-07-08 10:56] LABS: Folate (Folic Acid) > 48.00 ng/mL (>5.38)
== END | disposition home or self-care (01) ==
LOC: LAB 09:08
PROVIDERS: ATTEND Internal Medicine
DX: N40.0 Benign prostatic hyperplasia without lower urinary tract symptoms (principal); I10 Essential (primary) hypertension; Z98.890 Other specified postprocedural states
CPT/HCPCS: 36415; 80053; 80061; 81001; 82607; 82746; 83615; 84439; 84443; 85025; 85045; 85610; 85652

== ENCOUNTER → 2023-10-13 | Outpatient (CLI) | payer OTHER ==
[2023-10-13 10:44] LABS: Basophils # (auto) 0 10 ^3/uL (0-0.2); Basophils % (auto) 0.6 % (0.0-2.0); Eosinophils # (auto) 0.1 10 ^3/uL (0-0.8); Eosinophils % (auto) 1.1 % (0.0-7.0); Lymphocytes # (auto) 2.1 10 ^3/uL (0.4-5.4); Monocytes # (auto) 0.4 10 ^3/uL (0-1.3); Neutrophils # (auto) 3.8 10 ^3/uL (1.6-8.6); White Blood Cell 6.3 10^3/uL (4.4-10.8)
[2023-10-13 10:46] LABS: Hematocrit 38.9 % (41.0-53.0); Hemoglobin 13.5 g/dL (13.5-17.5); Lymphocytes % (auto) 32.5 % (10.0-50.0); Mean Corpuscular Hemoglobin 33.9 pg (28.0-32.0); Mean Corpuscular Hgb Conc. 34.6 g/dL (32.0-36.0); Mean Corpuscular Volume 97.9 fL (80.0-100.0); Monocytes % (auto) 6.3 % (0.0-12.0); Neutrophils % (auto) 59.5 % (37.0-80.0); Platelet Count (auto) 227 10^3/uL (140-450); Red Blood Cells 3.98 10^6/uL (4.5-5.90); Red Cell Distribution Width 13.2 % (11.8-14.3)
[2023-10-13 11:28] LABS: INR 1.01 (0.9-1.15); Partial Thromboplastin Time 30.2 SEC (24.5-34.5); Prothrombin Time 10.7 sec (9.3-11.8)
== END | disposition home or self-care (01) ==
LOC: LAB 10:27
PROVIDERS: ATTEND Internal Medicine
DX: R91.1 Solitary pulmonary nodule (principal)
CPT/HCPCS: 36415; 85025; 85610; 85730

== ENCOUNTER → 2023-10-14 | Outpatient (CLI) | payer OTHER ==
[~2023-10-14] MED LIST changes: +MIDAZOLAM HCL 2MG/2ML 2ml VIAL (1mg/ml) ONE; +fentaNYL CITRATE 100 MCG/2 ML VL ONE
[2023-10-14 10:05] VITALS: BP 114/57; PULSE 58; RESP 20; TEMP 97.7; O2SAT 97
[2023-10-14 10:35] VITALS: BP 135/51; PULSE 63; RESP 14; O2SAT 98
[2023-10-14 11:05] VITALS: BP 137/91; PULSE 58; RESP 15; O2SAT 99
[2023-10-14 11:35] VITALS: BP 142/52; PULSE 65; RESP 16; O2SAT 99
[2023-10-14 12:05] VITALS: BP 136/44; PULSE 56; RESP 12; O2SAT 99
== END | disposition home or self-care (01) ==
LOC: CT 08:44
PROVIDERS: ATTEND Internal Medicine
DX: C34.31 Malignant neoplasm of lower lobe, right bronchus or lung (principal); Z79.82 Long term (current) use of aspirin; F17.210 Nicotine dependence, cigarettes, uncomplicated; Z80.8 Family history of malignant neoplasm of other organs or systems
CPT/HCPCS: 32408; 71045; 88305; 88342; J2250; J3010; 10005; 71250; 77012

== ENCOUNTER → 2024-06-28 | Outpatient (CLI) | payer OTHER ==
[~2024-06-28] MED LIST changes: -MIDAZOLAM HCL 2MG/2ML 2ml VIAL (1mg/ml) ONE; -fentaNYL CITRATE 100 MCG/2 ML VL ONE
[2024-06-28 09:58] LABS: Urine Bacteria None Seen /hpf (None Seen)
[2024-06-28 10:14] LABS: Basophils # (auto) 0.1 10 ^3/uL (0-0.2); Basophils % (auto) 0.9 % (0.0-2.0); Eosinophils # (auto) 0.1 10 ^3/uL (0-0.8); Eosinophils % (auto) 2.2 % (0.0-7.0); Hematocrit 41.3 % (41.0-53.0); Hemoglobin 14.4 g/dL (13.5-17.5); Lymphocytes # (auto) 1.5 10 ^3/uL (0.4-5.4); Lymphocytes % (auto) 25.9 % (10.0-50.0); Mean Corpuscular Hemoglobin 33.5 pg (28.0-32.0); Mean Corpuscular Hgb Conc. 34.8 g/dL (32.0-36.0); Mean Corpuscular Volume 96.3 fL (80.0-100.0); Monocytes # (auto) 0.3 10 ^3/uL (0-1.3); Monocytes % (auto) 5.5 % (0.0-12.0); Neutrophils # (auto) 3.9 10 ^3/uL (1.6-8.6); Neutrophils % (auto) 65.5 % (37.0-80.0); Nucleated Red Blood Cells % 0.1 %; Platelet Count (auto) 257 10^3/uL (140-450); Red Blood Cells 4.29 10^6/uL (4.5-5.90); Red Cell Distribution Width 13.3 % (11.8-14.3); White Blood Cell 5.9 10^3/uL (4.4-10.8)
[2024-06-28 10:19] LABS: Urine Blood Negative /uL (Negative); Urine Clarity Clear (Clear); Urine Color Yellow (Yellow); Urine Protein, UAD Negative (Negative); Urine Specific Gravity 1.019 (1.001-1.035); Urine Squamous Epithelial Cell None Seen /hpf (<5); Urine Urobilinogen Normal (Negative); Urine WBC 1 /HPF (0-3); Urine pH 7.5 (5.0-9.0)
[2024-06-28 10:29] LABS: Prostate Specific Antigen 1.39 ng/mL (0.0-4.0)
[2024-06-28 10:30] LABS: Alanine Aminotransferase 14 U/L (7-40); Alkaline Phosphatase 106 U/L (46-116); Anion Gap 7 (5-15); BUN/Creatinine Ratio 11.4 (10.0-20.0); Blood Urea Nitrogen 14 mg/dL (9-23); Carbon Dioxide 28 mmol/L (20-31); Chloride 102 mmol/L (98-107); Glucose 102 mg/dL (74-106); LDL Cholesterol 61 mg/dL (< 100); Potassium 4.8 mmol/L (3.5-5.1); Sodium 137 mmol/L (136-145); Total Protein 7.1 g/dL (5.7-8.2)
[2024-06-28 10:31] LABS: Albumin 4.7 g/dL (3.2-4.8); Aspartate Aminotransferase 14 U/L (13-40); Bilirubin, Total 0.5 mg/dL (0.2-1.0); Cholesterol 122 mg/dL (< 200)
[2024-06-28 10:32] LABS: Free T4 (Free Thyroxine) 1.1 ng/dL (0.89-1.76)
[2024-06-28 10:33] LABS: Calcium 10.6 mg/dL (8.7-10.4); HDL Cholesterol 31 mg/dL (40-59); Triglycerides 245 mg/dL (< 150)
[2024-06-28 10:44] LABS: Erythrocyte Sedimentation Rate 13 mm/hr (0-20)
== END | disposition home or self-care (01) ==
LOC: LAB 09:42
PROVIDERS: ATTEND Internal Medicine
DX: C34.90 Malignant neoplasm of unspecified part of unspecified bronchus or lung (principal); N40.0 Benign prostatic hyperplasia without lower urinary tract symptoms; I10 Essential (primary) hypertension; J44.9 Chronic obstructive pulmonary disease, unspecified
CPT/HCPCS: 36415; 80053; 80061; 81001; 84153; 84439; 84443; 85025; 85652

== ENCOUNTER → 2024-10-20 | Outpatient (CLI) | payer OTHER | END | disposition home or self-care (01) | LOC: LAB 12:03 | PROVIDERS: ATTEND Dermatology | DX: Z01.812 Encounter for preprocedural laboratory examination (principal); D48.5 Neoplasm of uncertain behavior of skin ==

== ENCOUNTER 2024-12-20 13:47 | Outpatient (CLI) | payer OTHER ==
[2024-12-20 14:11] LABS: Hematocrit 38.2 % (41.0-53.0); Hemoglobin 13.4 g/dL (13.5-17.5); Mean Corpuscular Hemoglobin 32.9 pg (28.0-32.0); Mean Corpuscular Volume 93.7 fL (80.0-100.0); Nucleated Red Blood Cells % 0.0 %
[2024-12-20 14:37] LABS: Alanine Aminotransferase 16 U/L (7-40); Albumin 4.2 g/dL (3.2-4.8); Alkaline Phosphatase 104 U/L (46-116); Anion Gap 7 (5-15); BUN/Creatinine Ratio 8.0 (10.0-20.0); Blood Urea Nitrogen 10 mg/dL (9-23); Calcium 9.1 mg/dL (8.7-10.4); Carbon Dioxide 30 mmol/L (20-31); Chloride 100 mmol/L (98-107); Potassium 4.5 mmol/L (3.5-5.1); Sodium 137 mmol/L (136-145); Total Protein 6.7 g/dL (5.7-8.2)
[2024-12-20 14:39] LABS: Bilirubin, Total 0.2 mg/dL (0.2-1.0); Glucose 108 mg/dL (74-106)
== END 2024-12-20 17:00 | disposition home or self-care (01) ==
LOC: LAB 13:47
PROVIDERS: ATTEND Internal Medicine
DX: I10 Essential (primary) hypertension (principal)
CPT/HCPCS: 36415; 80053; 85025; 85652